=== PATIENT | male | born 1985 | race African-American/Black ===

== ENCOUNTER 2018-07-02 18:59 | Inpatient (IN) | payer SELFPAY ==
[~2018-07-02] VITALS: Ht 175.3 cm; Wt 94.8 kg
[~2018-07-02 18:59] MED LIST: AMIT25TA9 PO; CARV25TA2 PO; CLON0.1T PO; DIPH25TA62 PO; ESCI10TA PO; GABA-534 PO; HYDR-4077 PO; HYDR-548 PO; LORA2TAB PO; MAGN400T6 PO; TAMS0.4C34 PO; TRAM50TA2 PO; VITA1TAB20 PO; WARF3TAB59 PO
--- NOTE | 2018-07-02 19:03 | NUR ---
PT TO ER BED 11. BIBPA FROM [facility] C/O SCRAOTAL PAIN AND GENERALIZED EDEMA. PT PLACED IN GOWN AND ON RING SORTER. VSS/RESP EVEN UNLABORED/NAD NOTED/SKIN WARM AND DRY/AFEBRILE/DENIES N-V-D/AOX4. AWAITNG MD RODRIGUEZ.
--- NOTE | 2018-07-02 19:34 | NUR ---
ULTRASOUND AT BEDSIDE.
--- NOTE | 2018-07-02 20:20 | NUR ---
20G IV TO L EJ X 1 ATTEMPT USING ASEPTIC TECH, BLOOD CULT X 2 AND BLOOD HANDED OVER TO THE LAB AT BEDSIDE. IV FLUSHES EASILY WITH NS, NO S/S INFILTRATION NOTED AT THIS TIME.
[2018-07-02] MEDS ORDERED: HYDROMORPHONE INJ 2 MG/ML DISP.SYRIN ONE (20:23)
[2018-07-02] MEDS ORDERED: diphenhydrAMINE HCL 50 MG/ML VIAL ONE (20:23)
[2018-07-02] MEDS ORDERED: HYDROMORPHONE 1 MG/1 ML DISP.SYRIN IV ONE (20:30)
[2018-07-02] MEDS ORDERED: diphenhydrAMINE HCL 50 MG/ML VIAL IV ONE (20:30)
[2018-07-02 20:51] LABS: TROPONIN I < 0.017 ng/mL (0.00-0.056)
[2018-07-02 20:53] LABS: CALCIUM, SERUM 8.7 mg/dL (8.5-10.1); CARBON DIOXIDE 28 mmol/L (21-32); CHLORIDE 91 mmol/L (98-107); CREATININE 3.9 mg/dL (0.6-1.3); GLUCOSE 89 mg/dL (74-106); POTASSIUM 4.7 mmol/L (3.5-5.1); SODIUM SERUM 121 mmol/L (136-145); UREA NITROGEN, BLOOD 41 mg/dL (7-18)
[2018-07-02 21:05] LABS: ALANINE AMINOTRANSFERASE 19 U/L (12-78); ALBUMIN 1.9 g/dL (3.4-5.0); ALKALINE PHOSPHATASE 320 U/L (46-116); ASPARTATE AMINOTRANSFERASE 37 U/L (15-37); B-TYPE NATRIURETIC PEPTIDE 22648 PG/ML (0-125); BILIRUBIN,TOTAL 0.3 mg/dL (0.2-1.0)
[2018-07-02 21:13] LABS: HEMATOCRIT 23 % (39-51); HEMOGLOBIN 7.2 g/dL (13.5-17.5); MEAN CORPUSCULAR HEMOGLOBIN 25 PG (26.0-33.0); MEAN CORPUSCULAR HGB CONC 31 g/dl (31.0-36.0); MEAN CORPUSCULAR VOLUME 79 fL (80-96); PLATELET COUNT (AUTO) 325 /CMM (150-450); RED BLOOD CELL COUNT(AUTO) 2.89 MIL/uL (4.5-6.0); WHITE BLOOD COUNT (AUTO) 5.2 K/uL (4.3-11.0)
--- NOTE | 2018-07-02 21:35 | NUR ---
MADE AWARE PT IS DIALYSIS PT, UNABLE TO OBTAIN URINE AT THIS TIME. NO NEW ORDERS RECEIVED.
[2018-07-02 21:36] LABS: BAND % (MANUAL) 2 % (0.0-5.0); LYMPHOCYTES % (MANUAL) 7 % (16-48); NEUTROPHILS % (MANUAL) 86 (42-76)
[2018-07-02 21:37] LABS: EOSINOPHILS % (MANUAL) 1 % (0-4); MONOCYTES % (MANUAL) 4 % (0-11.0)
--- NOTE | 2018-07-02 22:30 | NUR ---
REPORT GIVEN TO SANDY ESTRADA FOR LISSETTE.
--- NOTE | 2018-07-02 22:40 | NUR ---
TELE/RN NOTES RECEIVED PT. FROM ER VIA YAYA. PT. IS AWAKE, ALERT AND ORIENTED X3. BREATHING EVEN AND UNLABORED ON 2LPM O2 VIA NC. NO SOB, RESPIRATORY DISTRESS OR COMPLAINTS OF PAIN NOTED AT THIS TIME. ORIENTED PT. TO ROOM. PLACED EXTERNAL MANUFACTURING ADVISOR ON PT. CURRENT RHYTHM = SINUS RHYTHM HR 82. PT. WITH #20 GAUGE LEFT IJ SALINE LOCK PRESENT, PATENT AND INTACT. PT. WITH RIGHT CHEST WALL DIALYSIS ACCESS NOTED. PT. REFUSING AUSCULTATION OF LUNGS, HEART AND ABDOMEN STATING "THEY DID IT DOWNSTAIRS". EDUCATED PT. ON IMPORTANCE OF ASSESSING PT, PT. CONTINUES TO REFUSE. PT. REFUSING TO BE BATHED, STATED "I DON'T WANT ANY WATER TO TOUCH ME, YOU CAN CHANGE MY GOWN". BED LOCKED AND IN LOWEST POSITION, SIDE RAILS UP X3, BED ALARM ON, CALL LIGHT WITHIN REACH, WILL CONTINUE TO MONITOR.
--- NOTE | 2018-07-02 22:53 | NUR ---
PT TRANSPORTED VIA STRETCHER TO TELE RM 312.2 ON VISION TEACHER WITH RN PER ACLS PROTOCOL. VSS.
[2018-07-02 23:00] VITALS: BP 159/99
[2018-07-02] MEDS ORDERED: TRAMADOL HCL 50 MG TABLET PO PRN (23:00)
[2018-07-02] MEDS ORDERED: diphenhydrAMINE HCL ELIX 25 MG/10 ML UDC PO PRN (23:00)
[2018-07-02] MEDS ORDERED: ONDANSETRON HCL/PF 4 MG/2 ML VIAL IVP PRN (23:30)
[2018-07-02] MEDS ORDERED: HYDROCODONE/APAP 5/325MG 1 EACH TABLET PO PRN (23:30)
[2018-07-02] MEDS ORDERED: ACETAMINOPHEN 325 MG TABLET PO PRN (23:30)
[2018-07-02] MEDS ORDERED: Z GUARD REMEDY 2 OZ OINT TP PRN (23:30)
[2018-07-02] MEDS ORDERED: ZOLPIDEM TARTRATE 5 MG TABLET PO PRN (23:30)
[2018-07-03] MEDS ORDERED: HYDROMORPHONE 1 MG/1 ML DISP.SYRIN IV PRN (00:30)
[2018-07-03] MEDS ORDERED: FUROSEMIDE 40 MG/4 ML VIAL IV ONE (00:30)
[2018-07-03] MEDS: CLONIDINE HCL 0.1 MG TABLET PO SCH ×6 (02:10→21:16)
[2018-07-03] MEDS: HYDROMORPHONE INJ 2 MG/ML DISP.SYRIN IV PRN ×5 (04:06→23:08)
[2018-07-03] MEDS: hydrALAZINE HCL 50 MG TABLET PO SCH ×3 (05:27→21:16)
--- NOTE | 2018-07-03 05:50 | NUR ---
TELE/RN NOTES PT. 0500 CATAPRES MEDICATION HELD DUE TO POSSIBLE DIALYSIS TODAY. BP 136/77 HR 78. WILL CONTINUE TO MONITOR.
--- NOTE | 2018-07-03 06:21 | NUR ---
TELE/RN NOTES PT. IS LYING IN BED RESTING. BREATHING EVEN AND UNLABORED ON 2LPM O2 VIA NC. NO SOB, RESPIRATORY DISTRESS OR COMPLAINTS OF PAIN NOTED AT THIS TIME. PT. WITH EXTERNAL ROLLER SETTER PRESENT AND INTACT, CURRENT RHYTHM = SINUS RHYTHM HR 78. PT. WITH #20 GAUGE LEFT IJ SALINE LOCK PRESENT, PATENT AND INTACT. PT. WITH RIGHT CHEST WALL DIALYSIS ACCESS NOTED. ALL PT. NEEDS MET. BED LOCKED AND IN LOWEST POSITION, SIDE RAILS UP X3, BED ALARM ON, CALL LIGHT WITHIN REACH, WILL ENDORSE TO DAYSHIFT NURSE FOR CONTINUITY OF CARE.
--- NOTE | 2018-07-03 07:30 | NUR ---
FANCY NEEDLEWORKER NOTES PATIENT RECEIVED RESTING INSIDE ROOM, AWAKE, ALERT AND ORIENTED, VERBALLY RESPONSIVE AND RESPONDS TO VERBAL AND TACTILE STIMULI. BREATHING EVEN AND UNLABORED. NO SOB OR ACUTE DISTRESS NOTED AT THIS TIME. PATIENT CALM AND RELAXED. NO CHANGES IN LOC NOTED. RIGHT CHEST WALL DIALYSIS SITE, NO BLEEDING OR DRAINAGE NOTED AT THIS TIME, WILL CONTINUE TO MONITOR. BED LOCKED AND IN LOW POSITION. BILATERAL UPPER SIDE RAILS UP AND LOCKED. CALL LIGHT WITHIN EASY REACH
[2018-07-03 07:31] LABS: HEMATOCRIT 22 % (39-51); MEAN CORPUSCULAR HEMOGLOBIN 25 PG (26.0-33.0); MEAN CORPUSCULAR HGB CONC 31 g/dl (31.0-36.0); MEAN CORPUSCULAR VOLUME 80 fL (80-96); PLATELET COUNT (AUTO) 282 /CMM (150-450); RDW COEFFICIENT OF VARIATION 22.5 (11.5-15.0); RED BLOOD CELL COUNT(AUTO) 2.76 MIL/uL (4.5-6.0); WHITE BLOOD COUNT (AUTO) 4.7 K/uL (4.3-11.0)
[2018-07-03 07:43] LABS: CALCIUM, SERUM 7.8 mg/dL (8.5-10.1); CREATININE 3.9 mg/dL (0.6-1.3); MAGNESIUM 1.7 mg/dL (1.8-2.4); PHOSPHORUS 5.2 mg/dL (2.5-4.9); POTASSIUM 4.6 mmol/L (3.5-5.1)
[2018-07-03 08:00] VITALS: BP 136/90
[2018-07-03 08:00] LABS: INR 2.16 (0.87-1.13)
[2018-07-03 08:09] LABS: HEMOGLOBIN 6.8 g/dL (13.5-17.5)
[2018-07-03] MEDS: VITAMIN B COMP W-C 1 TAB TABLET PO SCH (08:54)
[2018-07-03] MEDS: CARVEDILOL 12.5 MG TABLET PO SCH ×2 (08:55→21:17)
[2018-07-03] MEDS: MAGNESIUM OXIDE 400 MG TABLET PO SCH (08:55)
[2018-07-03] MEDS: ESCITALOPRAM OXALATE (10 MG) 10 MG TABLET PO SCH (08:55)
[2018-07-03] MEDS: GABAPENTIN 300 MG CAPSULE PO SCH ×2 (08:55→17:37)
--- NOTE | 2018-07-03 08:58 | NUR ---
QUALITY ASSURANCE ASSESSOR NOTES 0900 CLONIDINE AND CARVEDILOL MEDICATIONS HELD DUE TO POSSIBLE DIALYSIS TODAY. BP 136/92 HR 80. WILL CONTINUE TO MONITOR.
[2018-07-03 10:01] LABS: LYMPHOCYTES % (MANUAL) 11 % (16-48); MONOCYTES % (MANUAL) 11 % (0-11.0); NEUTROPHILS % (MANUAL) 78 (42-76)
[2018-07-03] MEDS ORDERED: EPOETIN ALFA (10,000 UNIT) 10,000 UNIT/ML VIAL IV ONE (11:00)
--- NOTE | 2018-07-03 11:41 | NUR ---
I spoke to Vidal Hermosillo and let him know that the result was positive
--- NOTE | 2018-07-03 11:42 | NUR ---
MS RN NOTES RECEIVED CALL FROM DR. ADAM REGARDING DOPPLER VENOUS RESULT WITH (+) DVT ON BLE. PER DR. ADAM, PATIENT'S DVT IS IMPROVING IN COMPARISION FROM PREVIOUS DOPPLER RESULT FROM PREVIOUS ADMISSION LAST MONTH. DR. LAWRENCE PRESENT AT UNIT AND MADE AWARE.
--- NOTE | 2018-07-03 11:47 | NUR ---
I spoke to Vidal Hermosillo and let him know that the result was positive.
--- NOTE | 2018-07-03 11:50 | NUR ---
MS RN NOTES PATIENT SEEN AND EXAMINED BY DR. TIMMONS, MADE AWARE OF HGB LEVEL OF 6.8, VERIFIED IF PATIENT WILL BE GIVEN BLOOD TRANSFUSION TODAY, DR. TIMMONS WITH NEW ORDER FOR EPOETIN CE 10,000 UNITS TO BE GIVEN WITH HD. ORDER NOTED AND CARRIED OUT.
--- NOTE | 2018-07-03 14:00 | NUR ---
MS RN NOTES PATIENT S/P HD WITH 3300 CC OUTPUT. NO CHANGES IN LOC NOTED AT THIS TIME. WILL CONTINUE TO MONITOR
--- NOTE | 2018-07-03 14:30 | NUR ---
MS RN NOTES PATIENT WITH C/O BLE AND FEET PAIN WITH LEVEL OF 9/10. REQUESTED FOR DILAUDID PRN. PATIENT WITH IV SITE ON LEFT IJ. DILAUDID OBTAINED FROM [facility]. PRIOR TO ADMINISTRATION OF DILAUDID, PATIENT ACCIDENTALLY REMOVED HIS IV ON LEFT IJ. MINIMAL BLEEDING NOTED, PRESSURE DRESSING APPLIED TO SITE. INITIATED IV INSERTION BUT UNSUCCESSFUL. DILAUDID WASTED, WITNESSED BY DAVID DELGADO. OFFERED PO PAIN MEDICATION BUT PATIENT REFUSED AND INSISTED TO HAVE AN RN INSERT IV. CALLED ER FOR ER NURSE TO INSERT IV
[2018-07-03 16:00] VITALS: BP 161/90
--- NOTE | 2018-07-03 16:32 | NUR ---
MS RN NOTES ER NURSE PRESENT AT UNIT, ATTEMPTED TO INSERT IV BUT UNSUCCESSFUL. OFFERED PATIENT ORAL PAIN MEDICATIONS BUT PATIENT CONTINUE TO REFUSE AND INSIST THAT HE WANTS DILAUDID. MD MADE AWARE. WILL CONTINUE TO MONITOR
--- NOTE | 2018-07-03 17:08 | NUR ---
MS RN NOTES PATIENT SEEN AND EXAMINED BY JANA LOPEZ DECK CADET. PATIENT REQUESTED FOR DILAUDID TO BE INCREASED TO 2MG AND JANA LOPEZ GAVE OK TO INCREASE DILAUDID TO 2MG IV PRN, TO KEEP IT Q4 PREVIOUS ORDER. NOTED AND CARRIED OUT. WILL CONTINUE TO MONITOR
--- NOTE | 2018-07-03 17:09 | NUR ---
MS RN NOTES ER NURSE PRESENT AT UNIT, IV SITE OBTAINED ON LEFT HAND g22, (+) BLOOD RETURN, DRESSING IN PLACE. WILL CONTINUE TO MONITOR
[2018-07-03] MEDS: WARFARIN SODIUM 1 MG TABLET PO SCH (17:40)
--- NOTE | 2018-07-03 18:44 | NUR ---
MS RN NOTES PATIENT RESTING INSIDE ROOM. AWAKE, ALERT AND ORIENTED X 4, VERBALLY RESPONSIVE AND RESPONDS TO VERBAL AND TACTILE STIMULI. BREATHING EVEN AND UNLABORED. NO SOB OR ACUTE DISTRESS NOTED AT THIS TIME. PATIENT CALM AND RELAXED. NO CHANGES IN LOC NOTED AT THIS TIME. IV SITE INTACT AND PATENT. WILL ENDORSE TO INCOMING SHIFT FOR LISSETTE. BED LOCKED AND IN LOW POSITION. BILATERAL UPPER SIDE RAILS UP AND LOCKED. CALL LIGHT WITHIN EASY REACH
[2018-07-03] MEDS: diphenhydrAMINE HCL 50 MG/ML VIAL IV PRN (19:14)
[2018-07-03 20:00] VITALS: BP 156/110
--- NOTE | 2018-07-03 20:20 | NUR ---
Lying in bed HOB up A/0 x4 speech is slow and slurred. 02 @ 4L n/c H/D cath to right Chest wall intact. IV s/l to right hand intact. On Med Sug status . Limit 1 litre fluid daily 400 cc on second shift supervisor. plus 2 Edema to scrotal area. Fall Risk. Siderails up call light within reach bed wheels locked. Denies of pain c/o Anxiety given 2mg ativan po.
[2018-07-03] MEDS: AMITRIPTYLINE HCL 25 MG TABLET PO SCH (21:17)
[2018-07-03] MEDS: TAMSULOSIN 0.4 MG CAP.SR.24H PO SCH (21:17)
[2018-07-03] MEDS: LORAZEPAM 1 MG TABLET PO PRN (21:17)
[2018-07-04] MEDS: CLONIDINE HCL 0.1 MG TABLET PO SCH ×6 (01:00→20:27)
[2018-07-04 04:00] VITALS: BP 145/86
[2018-07-04] MEDS: hydrALAZINE HCL 50 MG TABLET PO SCH ×3 (05:07→20:27)
[2018-07-04] MEDS: HYDROMORPHONE INJ 2 MG/ML DISP.SYRIN IV PRN ×3 (06:17→21:22)
--- NOTE | 2018-07-04 06:49 | NUR ---
End of Shift: lYING IN BED AWAKE AM LABS BEING DRAWN DENIES OF ANY DISTRESS. SIDE RAILS UP CALL RESTING COMFORABY.LT HAND S/L INTACT..
[2018-07-04 08:00] VITALS: BP 163/98
[2018-07-04] MEDS: ESCITALOPRAM OXALATE (10 MG) 10 MG TABLET PO SCH (08:28)
[2018-07-04] MEDS: MAGNESIUM OXIDE 400 MG TABLET PO SCH (08:28)
[2018-07-04] MEDS: VITAMIN B COMP W-C 1 TAB TABLET PO SCH (08:28)
[2018-07-04] MEDS: CARVEDILOL 12.5 MG TABLET PO SCH ×2 (08:28→20:27)
[2018-07-04] MEDS: GABAPENTIN 300 MG CAPSULE PO SCH ×2 (08:28→16:27)
[2018-07-04] MEDS: LORAZEPAM 1 MG TABLET PO PRN (08:29)
--- NOTE | 2018-07-04 08:30 | NUR ---
MS RN NOTES PATIENT IN SLIDING HIMSELF AT THE EDGE OF THE BED, APPEARS RESTLESS AND ANXIOUS, MANIFESTED BY TRYING TO GET UP FROM BED UNASSISTED, DID NOT USE CALL LIGHT FOR ASSISTANCE, REFUSING TO BE REPOSITIONED, APPEARS WEAK. OFFERED BREAKFAST AND ASSIST WITH 2 PERSON TO REPOSITION IN BED, DENIES PAIN. ON OXYGEN AT 4L VIA NC. PO PRN ATIVAN GIVEN FOR ANXIETY, PLACE BED IN LOW POSITION. CALL LIGHT WITHIN REACH. WILL CONT TO MONITOR.
[2018-07-04 12:47] VITALS: BP 147/99
[2018-07-04 16:00] VITALS: BP 157/98
[2018-07-04 17:09] LABS: CALCIUM, SERUM 7.5 mg/dL (8.5-10.1); CREATININE 3.1 mg/dL (0.6-1.3); POTASSIUM 4.7 mmol/L (3.5-5.1)
[2018-07-04 17:13] LABS: MAGNESIUM 1.6 mg/dL (1.8-2.4); PHOSPHORUS 4.5 mg/dL (2.5-4.9)
[2018-07-04 17:17] LABS: MEAN CORPUSCULAR HEMOGLOBIN 24 PG (26.0-33.0); MEAN CORPUSCULAR HGB CONC 30 g/dl (31.0-36.0); MEAN CORPUSCULAR VOLUME 80 fL (80-96); PLATELET COUNT (AUTO) 236 /CMM (150-450); RDW COEFFICIENT OF VARIATION 22.9 (11.5-15.0); RED BLOOD CELL COUNT(AUTO) 2.56 MIL/uL (4.5-6.0); WHITE BLOOD COUNT (AUTO) 3.9 K/uL (4.3-11.0)
[2018-07-04 17:23] LABS: HEMATOCRIT 20 % (39-51); HEMOGLOBIN 6.2 g/dL (13.5-17.5)
[2018-07-04 17:26] LABS: INR 2.07 (0.87-1.13)
[2018-07-04 17:42] LABS: EOSINOPHILS % (MANUAL) 1 % (0-4); LYMPHOCYTES % (MANUAL) 13 % (16-48); MONOCYTES % (MANUAL) 10 % (0-11.0); NEUTROPHILS % (MANUAL) 76 (42-76)
[2018-07-04 18:10] LABS: THYROID STIMULATING HORMONE 3.814 uIU/mL (0.358-3.74); URIC ACID 5.3 mg/dL (2.6-7.2)
[2018-07-04] MEDS: diphenhydrAMINE HCL 50 MG/ML VIAL IV PRN (18:19)
[2018-07-04] MEDS: WARFARIN SODIUM 1 MG TABLET PO SCH (18:37)
--- NOTE | 2018-07-04 18:59 | NUR ---
MS RN closing notes Patient in bed, dinner served with good appetite, on fluid restriction 1L/day. Episode of anxiety today, medicated with PO PRN ativan, effective. AM labs was drawn late, informed Dr. Chris gilman with result. Magnesium 1.6 with no new orders, 1 unit PRBC to infuse for hemoglobin 6.2, no active bleeding. Post dialysis treatment today with fluid output 3300ml. Call light within reach. Will endorse to oncoming RN.
--- NOTE | 2018-07-04 19:15 | NUR ---
MS DELGADO OPENING NOTES: RECEIVED PT IN BED AND IS A/OX3. PT ON 2LPM VIA NC AND IS TOLERATING WELL. PT AWAKE AT THIS TIME AND IS SITTING UP. PT HAS IV ON L HAND #22G AND IS PATENT AND INTACT. CURRENTLY H/L. BED ALARM ACTIVATED. CALL LIGHT WITHIN PT'S REACH. NEED BLOOD CONSENT FROM PT. BED KEPT IN LOW, LOCKED POSITION, AND SIDE RAILS X 2UP. WILL CONTINUE TO MONITOR PT. Addendum: 07/04/18 at 2103 by CARLY FELICIANO RN PT ALSO HAS R CHEST WALL HD CATH AND IS INTACT.
[2018-07-04 20:00] VITALS: BP 165/114
--- NOTE | 2018-07-04 20:50 | NUR ---
MS RN NOTES: CALLED LAB. BLOOD NOT READY.
--- NOTE | 2018-07-04 21:01 | NUR ---
MS RN NOTES: SPOKE WITH JOCELYN FROM LAB AND NOTIFIED ME THAT BLOOD HAS TO BE OBTAINED FROM [facility]. SHE WILL ENDORSE TO SOMEONE IN LAB AND WILL CALL ME ONCE OBTAINED AND READY.
[2018-07-04 21:15] VITALS: BP 177/115
[2018-07-04] MEDS: AMITRIPTYLINE HCL 25 MG TABLET PO SCH (21:22)
[2018-07-04] MEDS: TAMSULOSIN 0.4 MG CAP.SR.24H PO SCH (21:22)
--- NOTE | 2018-07-04 21:22 | NUR ---
MS RN NOTES: PT COMPLAINING OF 9/10 FEET AND LEG PAIN. PT WAS ADMINISTERED DILAUDID 2MG IV. WILL CONTINUE TO MONITOR PT.
[2018-07-05] VITALS (9 sets, daily range): BP systolic 138–186; BP diastolic 85–116
[2018-07-05] MEDS: CLONIDINE HCL 0.1 MG TABLET PO SCH ×6 (00:24→20:12)
[2018-07-05] MEDS: HYDROMORPHONE INJ 2 MG/ML DISP.SYRIN IV PRN ×5 (01:27→20:46)
--- NOTE | 2018-07-05 02:03 | NUR ---
MS RN NOTES: BLOOD TRANSFUSION STARTED. CO SIGNED WITH RN, KAREN NORMAN.
[2018-07-05] MEDS: hydrALAZINE HCL 50 MG TABLET PO SCH ×3 (04:13→20:12)
--- NOTE | 2018-07-05 04:52 | NUR ---
MS RN NOTES: BLOOD TRANSFUSION COMPLETED. PT TOLERATED WELL. NO REACTIONS. WILL CONTINUE TO MONITOR.
[2018-07-05] MEDS: diphenhydrAMINE HCL 50 MG/ML VIAL IV PRN ×3 (05:01→20:45)
--- NOTE | 2018-07-05 05:02 | NUR ---
MS RN NOTES: PT COMPLAINING OF ITCHING. PT WAS ADMINISTERED BENADRYL IV. WILL CONTINUE TO MONITOR.
--- NOTE | 2018-07-05 05:38 | NUR ---
MS RN NOTES: PT COMPLAINING OF 10/10 GENERALIZED PAIN, FEET, LEGS, AND BACK. PT WAS ADMINISTERED DILAUDID. WILL CONTINUE TO MONITOR PT.
--- NOTE | 2018-07-05 06:27 | NUR ---
MS RN NOTES: PT REFUSING TO BE CLEANED BY GLOBE CLEANER. PT DOES NOT WANT TO BE BOTHERED.
--- NOTE | 2018-07-05 07:27 | NUR ---
MS RN OPENING NOTE RECEIVED BEDSIDE SBAR REPORT ON THE PATIENT. PATIENT IS A/O X3, AWAKE AND RESPONSIVE IN BED. BED IS LOCKED IN LOWEST POSITION, SIDE RAILS UP X3, BED ALARM IS ON. CALL LIGHT WITHIN REACH, EDUCATED THE PATIENT TO USE THE CALL LIGHT TO CALL FOR ASSISTANCE. PATIENT VERBALIZED UNDERSTANDING. ASSISTED THE PATIENT TO REPOSITION FOR COMFORT. DENIES PAIN/DISCOMFORT AT THIS TIME. SPO2 97% ON 3LPM VIA NASAL CANNULA. ALL NEEDS ARE MET. WILL CONTINUE TO ASSES/MONITOR THROUGHOUT THE SHIFT.
--- NOTE | 2018-07-05 07:33 | NUR ---
MS RN CLOSING NOTES: ALL NEEDS WERE ATTENDED AND ANTICIPATED FOR. PT ON 4LPM VIA NC. PT SITTING UPRIGHT AND IS A/OX4. PT HAS IV ON L HAND AND IS PATENT AND INTACT. BED ALARM ACTIVATED. CALL LIGHT WITHIN PT'S REACH. BED KEPT IN LOW, LOCKED POSITION, AND SIDE RAILS X 2UP. ENDORSED TO AM NURSE FOR LISSETTE.
[2018-07-05 08:05] LABS: HEMATOCRIT 26 % (39-51); HEMOGLOBIN 8.1 g/dL (13.5-17.5); MEAN CORPUSCULAR HEMOGLOBIN 26 PG (26.0-33.0); MEAN CORPUSCULAR HGB CONC 31 g/dl (31.0-36.0); MEAN CORPUSCULAR VOLUME 82 fL (80-96); PLATELET COUNT (AUTO) 251 /CMM (150-450); RDW COEFFICIENT OF VARIATION 21.6 (11.5-15.0); RED BLOOD CELL COUNT(AUTO) 3.18 MIL/uL (4.5-6.0); WHITE BLOOD COUNT (AUTO) 5.6 K/uL (4.3-11.0)
[2018-07-05 08:31] LABS: CREATININE 2.8 mg/dL (0.6-1.3); MAGNESIUM 1.5 mg/dL (1.8-2.4); PHOSPHORUS 3.8 mg/dL (2.5-4.9); POTASSIUM 5.1 mmol/L (3.5-5.1)
[2018-07-05 09:53] LABS: LYMPHOCYTES % (MANUAL) 15 % (16-48); MONOCYTES % (MANUAL) 4 % (0-11.0); NEUTROPHILS % (MANUAL) 81 (42-76)
[2018-07-05] MEDS: MAGNESIUM OXIDE 400 MG TABLET PO SCH (10:42)
[2018-07-05] MEDS: CARVEDILOL 12.5 MG TABLET PO SCH ×2 (10:43→20:12)
[2018-07-05] MEDS: ESCITALOPRAM OXALATE (10 MG) 10 MG TABLET PO SCH (10:43)
[2018-07-05] MEDS: VITAMIN B COMP W-C 1 TAB TABLET PO SCH (10:46)
[2018-07-05] MEDS: GABAPENTIN 300 MG CAPSULE PO SCH ×2 (10:46→16:19)
[2018-07-05] MEDS: Magnesium 1GM/D5W 100ML PREMIX 100 ML IV SCH ×2 (10:48→11:00)
--- NOTE | 2018-07-05 12:16 | NUR ---
PER DR SOFIE BOWEN HOLD MAGNESIUM. PATIENT IS GOING TO BE DIALYZED TODAY.
--- NOTE | 2018-07-05 13:14 | NUR ---
BLOOD PRESSURE MEDS DUE HELD. HEMODIALYSIS PENDING.
--- NOTE | 2018-07-05 15:21 | NUR ---
PATIENT WENT TO CT VIA BED Addendum: 07/05/18 at 1522 by MOON PENNY RN CHARTING ON WRONG PATIENT
--- NOTE | 2018-07-05 15:22 | NUR ---
HD AT THE BEDSIDE
[2018-07-05] MEDS ORDERED: Magnesium 1GM/D5W 100ML PREMIX 100 ML IV SCH (15:30)
[2018-07-05] MEDS: WARFARIN SODIUM 1 MG TABLET PO SCH (16:23)
[2018-07-05] MEDS: CLOTRIMAZOLE/BETAMETASONE DIPROPIONATE 15 GM TUBE TP SCH (17:00)
--- NOTE | 2018-07-05 17:55 | NUR ---
AFTER CLONIDINE ADMINISTRATION BLOOD PRESSURE TRENDING DOWN
--- NOTE | 2018-07-05 18:34 | NUR ---
MS RN CLOSING NOTE PATIENT IS A/O X3, AWAKE AND RESPONSIVE IN BED. BED IS LOCKED IN LOWEST POSITION, SIDE RAILS UP X3, BED ALARM IS ON. CALL LIGHT WITHIN REACH, EDUCATED THE PATIENT TO USE THE CALL LIGHT TO CALL FOR ASSISTANCE. PATIENT VERBALIZED UNDERSTANDING. ASSISTED THE PATIENT TO REPOSITION FOR COMFORT. SPO2 97% ON 3LPM VIA NASAL CANNULA. ALL NEEDS ARE MET. PATIENT REFUSED WOUND CARE AND BED BATH. RISKS AND BENEFITS DISCUSSED. WILL ENDORSE TO THE CENTRAL STATION OPERATOR NURSE FOR LISSETTE.
[2018-07-05 19:12] LABS: INR 1.94 (0.87-1.13)
--- NOTE | 2018-07-05 19:25 | NUR ---
RN OPENING NOTES PT AWAKE AND ALERT, RESTING IN BED. NO COMPLAINTS OF SOB, DISTRESS OR PAIN AT THIS TIME. PT ON 3L OF 02 VIA NASAL CANNULA. PT HAS A LEFT HAND #22 IV INTACT AND PATENT PT ALSO HAS A RIGHT CHEST WALL HD CATH. SAFETY PRECAUTIONS IN PLACE, BED IN LOWEST LOCKED POSITION, X3 SIDE RAILS UP, AND CALL LIGHT WITHIN REACH. WILL CONTINUE TO MONITOR.
[2018-07-05] MEDS: TAMSULOSIN 0.4 MG CAP.SR.24H PO SCH (21:54)
[2018-07-05] MEDS: AMITRIPTYLINE HCL 25 MG TABLET PO SCH (21:54)
[2018-07-06] MEDS: CLONIDINE HCL 0.1 MG TABLET PO SCH ×5 (01:53→16:28)
[2018-07-06] MEDS: hydrALAZINE HCL 50 MG TABLET PO SCH ×2 (05:52→12:28)
[2018-07-06] MEDS: diphenhydrAMINE HCL 50 MG/ML VIAL IV PRN ×2 (06:32→15:00)
[2018-07-06] MEDS: HYDROMORPHONE INJ 2 MG/ML DISP.SYRIN IV PRN ×3 (06:32→16:33)
--- NOTE | 2018-07-06 06:41 | NUR ---
WOUND CARE CONSULT WOUND CARE RECEIVED CONSULT FOR SCRATCHES AND SCABS ABDOMEN ARMS AND LEGS. WOUND CARE WILL DEFER CONSULT AND TREATMENT PLANS TO SURGICAL TEAM AT THIS TIME. PATIENT WITH VIKRAM AT 16, ALL PRESSURE ULCER PREVENTION MEASURES NOTED TO BE IN PLACE. WILL SEE PRN.
--- NOTE | 2018-07-06 06:56 | NUR ---
RN OPENING NOTES PT AWAKE AND ALERT, RESTING IN BED. NO COMPLAINTS OF SOB OR DISTRESS. PT ON 3L OF 02 VIA NASAL CANNULA. PT HAS A RIGHT HAND #22 IV INTACT AND PATENT PT ALSO HAS A RIGHT CHEST WALL HD CATH. SAFETY PRECAUTIONS IN PLACE, BED IN LOWEST LOCKED POSITION, X3 SIDE RAILS UP, AND CALL LIGHT WITHIN REACH. ALL PATIENT NEEDS MET. WILL ENDORSE TO DAY SHIFT NURSE FOR CONTINUITY OF CARE.
[2018-07-06 07:11] LABS: HEMATOCRIT 24 % (39-51); HEMOGLOBIN 7.4 g/dL (13.5-17.5); MEAN CORPUSCULAR HEMOGLOBIN 26 PG (26.0-33.0); MEAN CORPUSCULAR HGB CONC 31 g/dl (31.0-36.0); MEAN CORPUSCULAR VOLUME 82 fL (80-96); PLATELET COUNT (AUTO) 230 /CMM (150-450); RDW COEFFICIENT OF VARIATION 21.1 (11.5-15.0); RED BLOOD CELL COUNT(AUTO) 2.91 MIL/uL (4.5-6.0); WHITE BLOOD COUNT (AUTO) 5.6 K/uL (4.3-11.0)
[2018-07-06 07:25] LABS: CALCIUM, SERUM 8.1 mg/dL (8.5-10.1); CREATININE 2.8 mg/dL (0.6-1.3); PHOSPHORUS 3.7 mg/dL (2.5-4.9); POTASSIUM 4.7 mmol/L (3.5-5.1)
--- NOTE | 2018-07-06 07:30 | NUR ---
MS RN NOTES PATIENT RECEIVED RESTING INSIDE ROOM. AWAKE, ALERT AND ORIENTED, VERBALLY RESPONSIVE AND RESPONDS TO VERBAL AND TACTILE STIMULI. BREATHING EVEN AND UNLABORED. NO SOB OR ACUTE DISTRESS NOTED AT THIS TIME. PATIENT CALM AND RELAXED. NO CHANGES IN LOC NOTED AT THIS TIME. IV INTACT AND PATENT, NO BLEEDING NOTED AT THIS TIME. WILL CONTINUE TO MONITOR. BED LOCKED AND IN LOW POSITION. BILATERAL UPPER SIDE RAILS UP AND LOCKED. CALL LIGHT WITHIN EASY REACH
[2018-07-06 08:00] VITALS: BP 144/98
[2018-07-06] MEDS: CLOTRIMAZOLE/BETAMETASONE DIPROPIONATE 15 GM TUBE TP SCH ×2 (09:00→16:32)
[2018-07-06] MEDS: GABAPENTIN 300 MG CAPSULE PO SCH ×2 (09:04→16:28)
[2018-07-06] MEDS: VITAMIN B COMP W-C 1 TAB TABLET PO SCH (09:05)
[2018-07-06] MEDS: ESCITALOPRAM OXALATE (10 MG) 10 MG TABLET PO SCH (09:05)
[2018-07-06] MEDS: MAGNESIUM OXIDE 400 MG TABLET PO SCH (09:05)
[2018-07-06] MEDS: CARVEDILOL 12.5 MG TABLET PO SCH (09:05)
[2018-07-06 10:08] LABS: LYMPHOCYTES % (MANUAL) 18 % (16-48); MONOCYTES % (MANUAL) 11 % (0-11.0); NEUTROPHILS % (MANUAL) 71 (42-76)
[2018-07-06] MEDS ORDERED: FURO40TA5 PO (11:43)
[2018-07-06 13:30] LABS: INR 1.97 (0.87-1.13)
[2018-07-06 16:00] VITALS: BP 147/90
[2018-07-06 16:28] VITALS: BP 147/90
[2018-07-06] MEDS: WARFARIN SODIUM 1 MG TABLET PO SCH (16:30)
[2018-07-06] MEDS ORDERED: FUROSEMIDE 40 MG TABLET PO SCH (17:00)
--- NOTE | 2018-07-06 17:12 | NUR ---
MS RN NOTES PATIENT WITH ORDER TO DISCHARGE TO [facility]. ORDERED NOTED AND CARRIED OUT. PLACED CALL TO CASE MANAGEMENT AND RECEIVED PICK-UP TIME FOR 1730. PLACED CALL TO [facility] AND GAVE REPORT TO SEEMA DELGADO. WILL CONTINUE TO MONITOR.
--- NOTE | 2018-07-06 18:00 | NUR ---
MS RN NOTES PATIENT FOR DISCHARGE TODAY. 3 COAL PIPELINE OPERATOR FROM [facility] TRANSPORTATION PRESENT AT UNIT. PATIENT LEFT UNIT AT 1800 IN STABLE CONDITION. BREATHING EVEN AND UNLABORED. NO SOB OR ACUTE DISTRESS NOTED. DENIES ANY PAIN OR DISCOMFORT. NO CHANGES IN LOC NOTED. ALL BELONGINGS COMPLETE ON DISCHARGE, NO REPORT OF MISSING INVENTORY. PATIENT CALM AND RELAXED. IV REMOVED WITH MINIMAL BLEEDING NOTED, PRESSURE DRESSING APPLIED TO SITE. DISCHARGE INSTRUCTIONS AND EDUCATION GIVEN TO PATIENT AND VERBALIZED UNDERSTANDING. MD AWARE OF DISCHARGE
== END 2018-07-06 18:00 | DRG 291 ==
LOC: ER 19:01 → TELE 22:32 → MED 07-03 08:40
PROVIDERS: ADMIT Nurse Practitioner Acute Care; ATTEND Nurse Practitioner Acute Care
PROC: 5A1D70Z Performance of Urinary Filtration, Intermittent, Less than 6 Hours Per Day (ICD-10-PCS; principal; 2018-07-03)
PROC: 5A1D70Z Performance of Urinary Filtration, Intermittent, Less than 6 Hours Per Day (ICD-10-PCS; 2018-07-04)
PROC: 5A1D70Z Performance of Urinary Filtration, Intermittent, Less than 6 Hours Per Day (ICD-10-PCS; 2018-07-05)
PROC: 30233N1 Transfusion of Nonautologous Red Blood Cells into Peripheral Vein, Percutaneous Approach (ICD-10-PCS; 2018-07-05)
DX: I13.2 Hypertensive heart and chronic kidney disease with heart failure and with stage 5 chronic kidney disease, or end stage renal disease (principal); N18.6 End stage renal disease; J96.21 Acute and chronic respiratory failure with hypoxia; E43 Unspecified severe protein-calorie malnutrition; I50.33 Acute on chronic diastolic (congestive) heart failure; D68.59 Other primary thrombophilia; E87.1 Hypo-osmolality and hyponatremia; R18.8 Other ascites; D63.8 Anemia in other chronic diseases classified elsewhere; I25.10 Atherosclerotic heart disease of native coronary artery without angina pectoris; J44.9 Chronic obstructive pulmonary disease, unspecified; Z79.01 Long term (current) use of anticoagulants; Z99.2 Dependence on renal dialysis; Z86.711 Personal history of pulmonary embolism; E88.09 Other disorders of plasma-protein metabolism, not elsewhere classified; Z68.30 Body mass index [BMI] 30.0-30.9, adult; E66.01 Morbid (severe) obesity due to excess calories; F11.10 Opioid abuse, uncomplicated; N50.89 Other specified disorders of the male genital organs; Z86.718 Personal history of other venous thrombosis and embolism; S81.801A Unspecified open wound, right lower leg, initial encounter; X58.XXXA Exposure to other specified factors, initial encounter; Y93.9 Activity, unspecified; Y92.129 Unspecified place in nursing home as the place of occurrence of the external cause
CPT/HCPCS: 36415; 70450-TC; 76870-TC; 80048-TC; 80053-TC; 80061-TC; 82728-TC; 83540-TC; 83605-TC; 83735-TC; 83880; 84100-TC; 84443-TC; 84484-TC; 84550-TC; 85025-TC; 85610-TC; 85730-TC; 86850-TC; 86921-TC; 87040-TC; 87081-TC; 90935-TC; 93970-TC; A4606; A6403; J0885; J1170; J1200; J1940; J3475; J7050; P9016-BL; Z7610

== ENCOUNTER 2018-09-14 06:28 | Inpatient (IN) | payer MEDICAID ==
[~2018-09-14] VITALS: Ht 170.2 cm; Wt 78.9 kg
[~2018-09-14 06:28] MED LIST changes: +FURO40TA5 PO; +HYDR-4354 PO; -HYDR-548 PO; -MAGN400T6 PO
--- NOTE | 2018-09-14 06:28 | NUR ---
PT BIBRA 39 FOR NON RADIATING CHEST PAIN AND SOB. PT ALSO COMPLAINING OF BILATERAL LEG PAIN AND HEADACHE. PT COMPLETED 30MINS DIALYSIS BEFORE BECOMING SYMPTOMATIC. PER RA, GAVE 1 SPRAY NITRO, ALBUTEROL TX. PT IS AAOX3. NOTED TACHYPNEA AND BILATERAL WHEEZING. SKIN WARM AND INTACT. PT PLACED IN GOWN AND ON CONTINUOUS SKULL CHOPPER
--- NOTE | 2018-09-14 06:29 | NUR ---
ER MD GIRON AT BEDSIDE FOR EVAL
--- NOTE | 2018-09-14 06:30 | NUR ---
Nayeli norton in [facility] - 09/14/18 at 0719 by MALACHI SENIOR WINDOWS SYSTEMS ENGINEER AT BEDSIDE
--- NOTE | 2018-09-14 06:52 | NUR ---
BLOOD SENT TO LAB WITH VASCULAR NEUROLOGIST
[2018-09-14] MEDS ORDERED: NITROGLYCERIN 0.4 MG/TAB BOTTLE ONE ×2 (06:55→06:57)
--- NOTE | 2018-09-14 06:55 | NUR ---
RADIOLOGY AT BEDSIDE FOR CXR
--- NOTE | 2018-09-14 06:58 | NUR ---
Nayeli norton in [facility] - 09/14/18 at 0715 by MALACHI RT AT BEDSIDE
[2018-09-14 07:00] LABS: HEMATOCRIT 29 % (39-51); HEMOGLOBIN 8.8 g/dL (13.5-17.5); MEAN CORPUSCULAR HGB CONC 30 g/dl (31.0-36.0); MEAN CORPUSCULAR VOLUME 80 fL (80-96); PLATELET COUNT (AUTO) 240 /CMM (150-450); RDW COEFFICIENT OF VARIATION 26.9 (11.5-15.0); RED BLOOD CELL COUNT(AUTO) 3.64 MIL/uL (4.5-6.0); WHITE BLOOD COUNT (AUTO) 5.5 K/uL (4.3-11.0)
[2018-09-14] MEDS ORDERED: NITROGLYCERIN 0.4 MG/TAB BOTTLE SL ONE (07:00)
[2018-09-14] MEDS ORDERED: ALBUTEROL FS 2.5 MG/3 ML VIAL.NEB CONTNEB ONE (07:00)
[2018-09-14] MEDS ORDERED: IPRATROPIUM NEB FS 0.5 MG/2.5 ML AMPUL.NEB NEB ONE (07:00)
--- NOTE | 2018-09-14 07:07 | NUR ---
RT CALLED FOR BREATHING TX
[2018-09-14 07:13] LABS: CALCIUM, SERUM 8.4 mg/dL (8.5-10.1); CREATININE 2.2 mg/dL (0.6-1.3); POTASSIUM 4.4 mmol/L (3.5-5.1)
--- NOTE | 2018-09-14 07:14 | NUR ---
CALLED RT FOR ABG, EN ROUTE TO PATIENT
--- NOTE | 2018-09-14 07:15 | NUR ---
RT AT BEDSIDE
--- NOTE | 2018-09-14 07:15 | NUR ---
CALLED DR. [facility]SE[facility], DR JESSI ARAGON.
[2018-09-14 07:18] LABS: INR 1.3 (0.87-1.13)
[2018-09-14 07:19] LABS: TROPONIN I 0.023 ng/mL (0.00-0.056)
[2018-09-14] MEDS ORDERED: ALBUTEROL FS 2.5 MG/3 ML VIAL.NEB ONE (07:21)
[2018-09-14] MEDS ORDERED: IPRATROPIUM NEB FS 0.5 MG/2.5 ML AMPUL.NEB ONE (07:22)
[2018-09-14] MEDS ORDERED: HYDROMORPHONE INJ 0.5 MG/0.5 ML SYRINGE IV ONE (07:30)
[2018-09-14] MEDS ORDERED: diphenhydrAMINE HCL 25 MG CAPSULE PO ONE (07:30)
--- NOTE | 2018-09-14 07:31 | NUR ---
REPORT RECEIVED FROM ESTEPHANIA DELGADO FOR LISSETTE. PENDING ADMISSION. NOTED RESP DISTRESS WHICH MD IS AWARE OF; RT AT BEDSIDE FOR BREATHING TX. PT STATES "I FEEL LIKE SHIT" AND REPORTS HEADACHE.
[2018-09-14] MEDS ORDERED: diphenhydrAMINE HCL 50 MG CAPSULE ONE (07:34)
[2018-09-14] MEDS ORDERED: HYDROMORPHONE 1 MG/1 ML DISP.SYRIN ONE ×2 (07:34→09:09)
[2018-09-14 07:36] LABS: NEUTROPHILS % (MANUAL) 84 (42-76)
[2018-09-14 07:37] LABS: EOSINOPHILS % (MANUAL) 2 % (0-4); LYMPHOCYTES % (MANUAL) 6 % (16-48); MONOCYTES % (MANUAL) 8 % (0-11.0)
[2018-09-14] MEDS ORDERED: MAGN400T6 PO (07:53)
--- NOTE | 2018-09-14 08:10 | NUR ---
PT TOLERATING WELL ON 3L VIA NC
--- NOTE | 2018-09-14 08:20 | NUR ---
PT IN CT FOR CT PULMONARY ANGIO
[2018-09-14] MEDS ORDERED: CT SWABBABLE VALVE TRANS SET 1 EA INFUS.SET MC ONE (08:22)
[2018-09-14] MEDS ORDERED: IV NS 0.9% 250 ML IV ONE (08:22)
[2018-09-14] MEDS ORDERED: IOHEXOL-350 100 ML VIAL IV ONE (08:22)
--- NOTE | 2018-09-14 08:32 | NUR ---
REPORT GIVEN TO LASHAE DELGADO FOR ADMISSION
--- NOTE | 2018-09-14 08:54 | NUR ---
REVIEWED ELEVATED BP WITH DR GIRON. NO ORDERS FOR ANTIHYPERTENSIVES AT THIS TIME. C/O PAIN AND ANXIETY, NEW ORDERS NOTED.
[2018-09-14] MEDS ORDERED: HEPARIN INFUSION/D5W 0 ML IV ONE (08:57)
[2018-09-14] MEDS ORDERED: HEPARIN INFUSION/D5W 500 ML IV PRN (09:00)
[2018-09-14] MEDS ORDERED: HYDROMORPHONE INJ 0.5 MG/0.5 ML SYRINGE IV PRN (09:00)
[2018-09-14] MEDS ORDERED: ENOXAPARIN SODIUM 80 MG/0.8 ML DISP.SYRIN SQ STA (09:07)
[2018-09-14] MEDS ORDERED: ENOXAPARIN SODIUM 80 MG/0.8 ML DISP.SYRIN SQ ONE (09:08)
--- NOTE | 2018-09-14 09:15 | NUR ---
MEDICATED ORDERED. CLARIFIED WITH DR GIRON - NO HEPARIN DRIP. ONLY LOVENOX.
--- NOTE | 2018-09-14 09:25 | NUR ---
PT TRANSPORTED TO [facility] RM 117-1 IN GUARDED CONDITION VIA ACLS PROTOCOL
--- NOTE | 2018-09-14 09:30 | NUR ---
[facility]/RN ADMITTING NOTES RECEIVED PT FROM ER VIA YAYA. A/OX4. PLACED ON TELE, SR HR 70S ON TELEMONITOR. PLACED ON 3L O2 VIA NC. SPO2 WNL. INITIAL ASSESSMENT AND VS TAKEN. ORIENTED TO ROOM AND USE OF CALL LIGHT. C/O 08/09 OF SHARONDA LOW EXT. RCHEST WALL HD CATH INTACT. LFA G 20 AND REJ G18 INTACT AND PATENT. CALL LIGHT WITHIN REACH. WILL CONT TO MONITOR NOTIFIED DR SOFIE BOWEN FOR ADMITTING ORDERS AND PT'S BP
--- NOTE | 2018-09-14 10:00 | NUR ---
RN NOTES RECEIVED ADMISSION FROM DR SOFIE BOWEN: ADMIT TO JOHN, ROUTINE VS, CODE STATUS, RESUME ALL HOME MEDS AND HYDRALAZINE 50 MG PO Q6HR PRN SBP>160 AND DBP>100. ORDERS NOTED AND CARRIED OUT
[2018-09-14] MEDS: hydrALAZINE HCL 50 MG TABLET PO PRN ×2 (10:39→16:43)
[2018-09-14] MEDS: LORAZEPAM 1 MG TABLET PO SCH ×2 (11:07→18:28)
[2018-09-14] MEDS: diphenhydrAMINE HCL ELIX 25 MG/10 ML UDC PO SCH ×2 (11:07→16:05)
[2018-09-14 12:00] VITALS: BP_SYST 162; BP_SYST 180; BP_DIAS 118; BP_DIAS 93
[2018-09-14] MEDS: GABAPENTIN 300 MG CAPSULE PO SCH ×2 (14:10→16:05)
[2018-09-14 16:00] VITALS: BP 179/110
[2018-09-14] MEDS: HYDROCODONE/APAP 10/325MG 1 EA TABLET PO PRN (16:05)
[2018-09-14] MEDS: WARFARIN SODIUM 2 MG TABLET PO SCH (16:19)
--- NOTE | 2018-09-14 17:00 | NUR ---
RN NOTES SEEN AND EXAMINED BY DR. ARRIETA, NOTIFIED RE: PT'S SBP ON 170S.
[2018-09-14] MEDS: HYDROMORPHONE INJ 2 MG/ML DISP.SYRIN IV PRN ×2 (17:26→21:46)
--- NOTE | 2018-09-14 17:30 | NUR ---
RN NOTES RECHECKED BP 154/98
--- NOTE | 2018-09-14 19:14 | NUR ---
RN NOTES PT IN STABLE CONDITION. NO ACUTE CHANGES NOTED THROUGHOUT SHIFT. SAFETY MEASURES OBSERVED AT ALL TIMES. ALL NEEDS ANTICIPATED. ENDORSED TO PM SHIFT RN FOR LISSETTE
--- NOTE | 2018-09-14 19:38 | NUR ---
TD RN NOTES RECEIVED PT ON BED. A/O X4. ON NASAL CANNULA 3LPM NO RESPIRATORY DISTRESS NOTED. ON TELE MONITOR SR 94. IV ACCESS ON LFA G20 AND LEJ G18 PATENT AND INTACT. HD ACCESS ON RIGHT CHEST WALL HD NO BLEEDING NOTED. HEAD OF BED ELEVATED. SIDE RAILS UP. CALL LIGHT WITHIN REACH. BED ALARM ON. WILL CONTINUE TO MONITOR PT CLOSELY.
[2018-09-14 20:00] VITALS: BP 158/116
--- NOTE | 2018-09-14 20:23 | NUR ---
TD RN NOTES PT WANTED TO GO OUTSIDE. INFORMED PT THAT HE'S BLOOD PRESSURE IS HIGH. AND EXPLAINED TO THE PT THAT GOING OUT AND MOVING WILL INCREASE HIS BLOOD PRESSURE FURTHER . CHARGED NURSE INFORMED ABOUT THE SITUATION.
[2018-09-14] MEDS: CLONIDINE HCL 0.1 MG TABLET PO PRN (21:02)
[2018-09-14] MEDS: TAMSULOSIN 0.4 MG CAP.SR.24H PO SCH (21:02)
[2018-09-14] MEDS: AMITRIPTYLINE HCL 25 MG TABLET PO SCH (21:02)
[2018-09-14] MEDS: CARVEDILOL 12.5 MG TABLET PO SCH (21:03)
[2018-09-14 21:30] VITALS: BP 155/100
[2018-09-14] MEDS ORDERED: ACETAMINOPHEN 325 MG TABLET PO PRN (22:00)
[2018-09-14] MEDS ORDERED: BENZOCAINE DENTAL GEL 7.5% 9.9 GM TUBE MM PRN ×2 (22:00)
--- NOTE | 2018-09-14 22:33 | NUR ---
TD RN NOTES PT WANTS ACETAMINOPHEN AND ORAJEL FOR TOOTH PAIN. CALLED BROADCAST ENGINEER DOCTOR. ORDERED ACETAMINOPHEN AND ORAJEL. WILL CONTINUE TO MONITOR.
--- NOTE | 2018-09-14 22:34 | NUR ---
TD RN NOTES PT WENT OUT ACCOMPANIED BY RN PER PT REQUEST. PER PT HE WANTS FRESH AIR. EXPLAINED RISK OF GOING OUT. PT WANTS TO GO OUT. CHARGE NURSE INFORMED. PT SHOUTING IN THE PARKING LOT FOR HEMSTITCHER. EXPLAINED SMOKING IS NOT ALLOWED IN THE HOSPITAL. CHARGE NURSE INFORMED. WILL CONTINUE TO MONITOR PT.
--- NOTE | 2018-09-14 23:00 | NUR ---
TD RN NOTES PT REFUSED TO HAVE HIS NASAL CANNULA 6LPM TO BE DECREASE BY 3LPM. PT SATURATING AT 100%, NO RESPIRATORY DISTRESS NOTED. HE SAID HE WANTS THE OXYGEN AT 6LPM. EXPLAINED THE RISK AND BENEFITS.
[2018-09-15] VITALS: BP 143/92
[2018-09-15] MEDS: LORAZEPAM 1 MG TABLET PO SCH ×3 (02:47→17:56)
[2018-09-15] MEDS: HYDROMORPHONE INJ 2 MG/ML DISP.SYRIN IV PRN ×5 (02:48→19:52)
[2018-09-15 04:00] VITALS: BP 150/100
--- NOTE | 2018-09-15 04:28 | NUR ---
TD RN NOTES PT TRYING TO GET OUT OF BED. BED ALARM WENT ON. EXPLAINED TO PT RISK OF FALLING. PT STILL WANTS TO GO OUT OF BED. BED ALARM ON. SIDE RAILS UP. WILL CONTINUE CLOSE MONITORING TO THE PT.
--- NOTE | 2018-09-15 07:21 | NUR ---
TD RN NOTES NO ACUTE CHANGES NOTED DURING THE SHIFT. PROVIDED COMFORT AND SAFETY. DUE MEDS GIVEN. WILL ENDORSE TO THE AM NURSE FOR CONTINUITY OF CARE.
[2018-09-15 08:00] VITALS: BP_SYST 122; BP_SYST 163; BP_DIAS 114; BP_DIAS 63
[2018-09-15] MEDS: diphenhydrAMINE HCL ELIX 25 MG/10 ML UDC PO SCH ×2 (08:14→17:08)
[2018-09-15] MEDS: GABAPENTIN 300 MG CAPSULE PO SCH ×3 (08:14→17:08)
[2018-09-15] MEDS: CARVEDILOL 12.5 MG TABLET PO SCH ×2 (08:15→21:22)
[2018-09-15] MEDS: ESCITALOPRAM OXALATE (10 MG) 10 MG TABLET PO SCH (08:15)
[2018-09-15] MEDS: MAGNESIUM OXIDE 400 MG TABLET PO SCH (08:16)
[2018-09-15] MEDS ORDERED: BENZOCAINE DENTAL GEL 7 GM TUBE MM PRN (08:30)
--- NOTE | 2018-09-15 10:42 | NUR ---
WOUND CARE CONSULT: PT PRESENTS WITH RT LOWER LEG WOUND,PRESENT ON ADMISSION. RECOMMEND DPM CONSULT. DEFER TO DPM FOR WOUND TREATMENT PLAN. WILL SEE PRN. Addendum: 09/15/18 at 1043 by KIP ESCAMILLA WNDNU Amended: Links added.
[2018-09-15] MEDS ORDERED: diphenhydrAMINE HCL/ZINC ACET CREAM 28.3 GM TUBE TP PRN (14:00)
[2018-09-15] MEDS: HYDROCODONE/APAP 10/325MG 1 EA TABLET PO PRN (14:55)
[2018-09-15 16:00] VITALS: BP 143/96
[2018-09-15] MEDS: WARFARIN SODIUM 2 MG TABLET PO SCH (17:10)
[2018-09-15] MEDS ORDERED: EPOETIN ALFA (10,000 UNIT) 10,000 UNIT/ML VIAL IV ONE (17:30)
[2018-09-15 20:00] VITALS: BP 159/110
--- NOTE | 2018-09-15 20:00 | NUR ---
MS DOC INITIAL NOTES SEEN PT SITTING IN BED AWAKE AND ALERT COMPLAINING OF GENERALIZED PAIN .HE'S TRYING TO GET OUT OF HIS ROOM BUT STARTED TALKING TO HIM THAT HE NEEDS TO STAY IN HIS ROOM BECAUSE OF HIS ISOLATION PRECAUTION. THEN PATIENT INSISTED THAT HE NEEDS HIS DILAUDID. NO SIGNS OF ANY ACUTE DISTRESS NOTED. I SPOKE TO HIM THAT I WILL CHECKED IF ITS TIME. KEPT HIM SAFE AND COMFORTABLE AT ALL TIMES. PLACE CALL LIGHT AT REACH. WILL CONTINUE MONITORING.
[2018-09-15] MEDS: AMITRIPTYLINE HCL 25 MG TABLET PO SCH (21:24)
[2018-09-15] MEDS: TAMSULOSIN 0.4 MG CAP.SR.24H PO SCH (21:24)
--- NOTE | 2018-09-15 21:30 | NUR ---
TELEPHONE LINEWORKER NOTES PT SEEMS COMFORTABLE AFTER PAIN MEDS GIVEN BY ANOTHER NURSE. ROUTINE MEDS GIVEN WELL, NO ASPIRATION NOTED. WILL CONTINUE MONITORING.
[2018-09-15] MEDS: MUPIROCIN OINT 2% 22 GM TUBE SCH (21:39)
[2018-09-16] VITALS (11 sets, daily range): BP systolic 140–152; BP diastolic 86–104
[2018-09-16] MEDS: HYDROMORPHONE INJ 2 MG/ML DISP.SYRIN IV PRN ×5 (00:52→20:09)
--- NOTE | 2018-09-16 01:00 | NUR ---
TENTER FRAME BACK TENDER/NOTES PAIN MEDS GIVEN ARIE IVP ORDERED BY ANOTHER NURSE PER PT REQUESTED FOR HIS GENERALIZED PAIN.KEPT HIM WARM AND COMFORTABLE AT ALL TIMES. SAFETY PRECAUTION IMPLEMENTED AND OBSERVED. WILL CONTINUE MONITORING. PLACE CALL LIGHT AT REACH.
[2018-09-16] MEDS: LORAZEPAM 1 MG TABLET PO SCH ×3 (03:00→20:09)
--- NOTE | 2018-09-16 04:58 | NUR ---
MS DOC NOTES PT WOKE UP AND COMPLAINED OF GENERALIZED PAIN. DILAUDID ADMINISTERED BY ANOTHER NURSE CINDY ORDERED ARIE IVP . EDUCATE PT FOR SIDE EFFECT AND PT AWARE. KEPT HIM SAFE AT ALL TIMES. WILL CONTINUE MONITORING. PLACE CALL LIGHT AT REACH.
--- NOTE | 2018-09-16 06:46 | NUR ---
MS SPOT WELDER BODY ASSEMBLY CLOSING NOTES PT SLEEPING AT THIS TIME BUT AROUSES TO TOUCH . NO SIGNS OF ANY ACUTE DISTRESS NOTED. RESPIRATION EVEN AND NON-LABORED, VITAL SIGNS STABLE . ALL DUE MEDS GIVEN AND ALL NEEDS MET. KEPT HIM WARM AND COMFORTABLE AT ALL TIMES. BED IN LOW AND LOCK IN POSITION. PLACE CALL LIGHT AT REACH. WILL CONTINUE MONITORING. ENDORSE TO AM NURSE FOR CONTINUITY OF CARE.
--- NOTE | 2018-09-16 07:25 | NUR ---
MS RN OPENING NOTES RECEIVED PT ON BED.ALERT/ORIENTED X4 WITH MILD CONFUSION.ON 4L O2 VIA NC WITH O2 95%.NO SOB AND ACUTE DISTRESS NOTED.IV LINE IS ON LEFT FA G 20,LEFT JUGULAR G 18,SITE IS CLEAN,DRY AND INTACT.HD CATHETER ON RIGHT CHEST WALL,SITE IS CLEAN AND DRY.SAFETY IS MAINTAINED ALL THE TIME.BED IS IN LOW POSITION AND LOCKED.CALL LIGHT IS WITHIN REACH.WILL CONTINUE TO MONITOR THE PT CLOSELY.
[2018-09-16] MEDS: diphenhydrAMINE HCL ELIX 25 MG/10 ML UDC PO SCH ×2 (08:10→17:03)
[2018-09-16] MEDS: MAGNESIUM OXIDE 400 MG TABLET PO SCH (08:11)
[2018-09-16] MEDS: GABAPENTIN 300 MG CAPSULE PO SCH ×3 (08:11→17:03)
[2018-09-16] MEDS: ESCITALOPRAM OXALATE (10 MG) 10 MG TABLET PO SCH (08:11)
--- NOTE | 2018-09-16 08:50 | NUR ---
MS RN NOTES CALLED [facility] AND SPOKE TO NII,VERIFIED THAT NO DIALYSIS TODAY AND POSSIBLY ON TOMORROW.SO TAB COREG 25MG PO GIVEN NOW.
[2018-09-16] MEDS: CARVEDILOL 12.5 MG TABLET PO SCH ×2 (08:59→20:09)
[2018-09-16] MEDS ORDERED: FEE PK DOSING 1 MIN EA MC ONE (10:27)
[2018-09-16] MEDS ORDERED: VANCOMYCIN 500 MG in IV D5W 100 ML IV PRN (10:30)
[2018-09-16 10:37] LABS: INR 2.4 (0.87-1.13)
[2018-09-16] MEDS: MEROPENEM 500 MG in IV NS 0.9% 50 ML IV SCH ×2 (10:46→22:18)
[2018-09-16] MEDS ORDERED: VANCOMYCIN 1 GM in IV D5W 250 ML IV ONE ×2 (12:00→17:30)
[2018-09-16] MEDS ORDERED: IOHEXOL-350 100 ML VIAL IV ONE (12:41)
[2018-09-16] MEDS ORDERED: METOPROLOL TARTRATE INJ 5 MG/5 ML AMPUL ONE ×3 (13:27→14:11)
--- NOTE | 2018-09-16 13:45 | NUR ---
MS RN, patient stated that patient slip down from bed to floor , asymtomatic no injury noted primary nurse left message to by primary nurse waiting for returned call back vitals will continue to assess and evaluate
[2018-09-16] MEDS ORDERED: NITROGLYCERIN 0.4 MG/TAB BOTTLE ONE (13:59)
[2018-09-16 14:11] LABS: ABG BASE EXCESS -2.2 mmol/L; ABG OXYGEN SATURATION 98.9 % (92.0-98.5); ABG PCO2 50.3 mmHg (35.0-45.0); ABG PH 7.302 (7.350-7.450); ABG PO2 308.1 mmHg (75.0-100.0); AaDO2 209.5 mmHg; COHb 1.9 % (0.5-1.5); MetHb 0.3 % (0.0-1.5); O2Hb 96.7 % (94.0-97.0); SITE, ABG Right Radial; VENT MODE, BG NRB MASK
[2018-09-16] MEDS ORDERED: IOHEXOL-300 100 ML VIAL IV ONE (14:28)
--- NOTE | 2018-09-16 15:30 | NUR ---
MS RN NOTES PT RECEIVED FROM [facility],FROM [facility] THEY GAVE 50MG METOPROLOL.SO THET ORDERED TO MONITOR THE PT V/S Q15MT X1HR AND THEN Q30MT X2HRS.NEW ORDERS NOTED AND CARRIED OUT.
[2018-09-16] MEDS: WARFARIN SODIUM 2 MG TABLET PO SCH (17:05)
[2018-09-16] MEDS: MUPIROCIN OINT 2% 22 GM TUBE SCH ×2 (17:07→20:20)
--- NOTE | 2018-09-16 18:48 | NUR ---
MS RN CLOSING NOTES PT IS ON BED.NO COMPLICATIONS NOTED AFTER [facility].VITAL SIGNS ARE CHECKING FREQUENTLY.PERIPHERAL IV LINE IS ON LEFT FA G 20,SITE IS CLEAN,DRY AND INTACT.ENDORSED TO CRUSHER TENDER RN FOR CONTINUITY OF CARE.
[2018-09-16] MEDS: ALBUTEROL HALF STRENGTH 1.25 MG/3 ML VIAL.NEB NEB SCH (19:52)
[2018-09-16] MEDS: IPRATROPIUM NEB FS 0.5 MG/2.5 ML AMPUL.NEB NEB SCH (19:52)
[2018-09-16] MEDS ORDERED: IMIPENEM/CILASTATIN 500 MG in IV NS 0.9% 100 ML IV SCH (21:00)
[2018-09-16] MEDS: AMITRIPTYLINE HCL 25 MG TABLET PO SCH (22:18)
[2018-09-16] MEDS: TAMSULOSIN 0.4 MG CAP.SR.24H PO SCH (22:18)
[2018-09-17] MEDS: IPRATROPIUM NEB FS 0.5 MG/2.5 ML AMPUL.NEB NEB SCH ×4 (01:26→19:52)
[2018-09-17] MEDS: ALBUTEROL HALF STRENGTH 1.25 MG/3 ML VIAL.NEB NEB SCH ×4 (01:26→19:52)
[2018-09-17] MEDS: HYDROMORPHONE INJ 2 MG/ML DISP.SYRIN IV PRN ×3 (01:55→22:01)
--- NOTE | 2018-09-17 01:55 | NUR ---
MS RN NOTES C/O GENERALIZED PAIN 8/10 ON PAIN SCALE.DILAUDID 1MG IV GIVEN ORDERED FOR SEVERE PAIN
[2018-09-17 04:00] VITALS: BP 141/99
[2018-09-17] MEDS: LORAZEPAM 1 MG TABLET PO SCH ×3 (04:31→21:16)
[2018-09-17] MEDS: HYDROCODONE/APAP 10/325MG 1 EA TABLET PO PRN (04:31)
--- NOTE | 2018-09-17 08:00 | NUR ---
RN NOTES PATIENT IN BED RESTING ALERT, ORIENTED X3 . PATIENT STARTED ON HD TOLERATING WELL. PERIPHERAL IV INTACT PATIENT. BED IN LOW LOCKED POSITION. CALL LIGHT WITHIN REACH. WILL CONTINUE TO MONITOR.
[2018-09-17] MEDS: diphenhydrAMINE HCL ELIX 25 MG/10 ML UDC PO SCH ×2 (08:28→16:07)
[2018-09-17] MEDS: GABAPENTIN 300 MG CAPSULE PO SCH ×3 (08:28→16:07)
[2018-09-17] MEDS: CARVEDILOL 12.5 MG TABLET PO SCH ×2 (08:29→21:16)
[2018-09-17] MEDS: MAGNESIUM OXIDE 400 MG TABLET PO SCH (08:29)
[2018-09-17] MEDS: ESCITALOPRAM OXALATE (10 MG) 10 MG TABLET PO SCH (08:29)
[2018-09-17] MEDS: MUPIROCIN OINT 2% 22 GM TUBE SCH ×2 (08:30→21:17)
[2018-09-17] MEDS: MEROPENEM 500 MG in IV NS 0.9% 50 ML IV SCH ×2 (11:26→22:01)
[2018-09-17 12:00] VITALS: BP 168/109
[2018-09-17] MEDS: CLONIDINE HCL 0.1 MG TABLET PO PRN (12:39)
[2018-09-17 15:27] LABS: CREATININE 3.6 mg/dL (0.6-1.3); POTASSIUM 5.2 mmol/L (3.5-5.1)
[2018-09-17 15:39] LABS: INR 2.86 (0.87-1.13)
[2018-09-17] MEDS ORDERED: VANCOMYCIN 1 GM in IV D5W 250 ML IV ONE (16:00)
[2018-09-17] MEDS: WARFARIN SODIUM 2 MG TABLET PO SCH (16:07)
--- NOTE | 2018-09-17 18:12 | NUR ---
RN NOTES PATIENT IN BED RESTING NO SOB OR ACUTE DISTRESS NOTED. NO ACUTE CHANGED NOTED. PATIENT POST HD WITH 3LITTERS OUTPUT. ALL DUE MEDICATIONS ADMINISTERED. ALL NEEDS MET WILL ENDORSE CARE TO PM SHIFT.
--- NOTE | 2018-09-17 19:36 | NUR ---
MS RN NOTES RECEIVED PT ON BED. SLEEPING. NO RESPIRATORY DISTRESS NOTED. HD ACCESS ON RCW HD CATH NO BLEEDING NOTED. RIGHT HAND G2 SL PATENT AND INTACT. HEAD OF BED ELEVATED. SIDE RAILS UP. CALL LIGHT WITHIN REACH. BED ALARM ON. WILL CONTINUE TO MONITOR
[2018-09-17 20:00] VITALS: BP 151/96
[2018-09-17] MEDS: AMITRIPTYLINE HCL 25 MG TABLET PO SCH (21:16)
[2018-09-17] MEDS: TAMSULOSIN 0.4 MG CAP.SR.24H PO SCH (21:16)
[2018-09-17] MEDS ORDERED: diphenhydrAMINE HCL 50 MG/ML VIAL ONE (23:53)
[2018-09-18] VITALS (9 sets, daily range): BP systolic 114–223; BP diastolic 89–138
--- NOTE | 2018-09-18 00:25 | NUR ---
MS RN NOTES PT REFUSED TP BENADRYL FOR ITCHING. PER PT HE WANTS IV BENADRYL. WILL CONTINUE TO MONITOR
--- NOTE | 2018-09-18 00:28 | NUR ---
MS RN NOTES PT REQUESTED BENADRYL 50MG IV FOR ITCHING. WILL CONTINUE TO MONITOR PT
[2018-09-18] MEDS: IPRATROPIUM NEB FS 0.5 MG/2.5 ML AMPUL.NEB NEB SCH ×4 (00:47→19:33)
[2018-09-18] MEDS: ALBUTEROL HALF STRENGTH 1.25 MG/3 ML VIAL.NEB NEB SCH ×4 (00:48→19:33)
[2018-09-18] MEDS: diphenhydrAMINE HCL 50 MG/ML VIAL IV PRN ×2 (00:58→12:15)
[2018-09-18] MEDS: HYDROCODONE/APAP 10/325MG 1 EA TABLET PO PRN ×3 (03:10→16:05)
[2018-09-18] MEDS: HYDROMORPHONE INJ 2 MG/ML DISP.SYRIN IV PRN ×3 (04:10→18:32)
[2018-09-18] MEDS: hydrALAZINE HCL 50 MG TABLET PO PRN ×2 (04:26→16:07)
[2018-09-18] MEDS: LORAZEPAM 1 MG TABLET PO SCH ×3 (04:31→20:09)
--- NOTE | 2018-09-18 06:30 | NUR ---
MS RN NOTES NO ACUTE CHANGES NOTED DURING THE SHIFT. PROVIDED COMFORT AND SAFETY. DUE MEDS GIVEN. WILL ENDORSE TO THE AM NURSE FOR CONTINUITY OF CARE.
--- NOTE | 2018-09-18 07:21 | NUR ---
MS/RN Patient received Patient received from night cleaner. A/O X3-4, vital signs stable, no shortness of breath or chest pain at this time. Safety measurs in place, call light within reach, will continue to monitor and ensure safety.
[2018-09-18] MEDS: ESCITALOPRAM OXALATE (10 MG) 10 MG TABLET PO SCH (09:09)
[2018-09-18] MEDS: GABAPENTIN 300 MG CAPSULE PO SCH ×3 (09:09→16:06)
[2018-09-18] MEDS: MAGNESIUM OXIDE 400 MG TABLET PO SCH (09:09)
[2018-09-18] MEDS: diphenhydrAMINE HCL ELIX 25 MG/10 ML UDC PO SCH ×2 (09:09→16:09)
[2018-09-18] MEDS: CARVEDILOL 12.5 MG TABLET PO SCH ×2 (09:10→20:10)
[2018-09-18] MEDS: MUPIROCIN OINT 2% 22 GM TUBE SCH ×2 (09:11→21:18)
[2018-09-18 09:28] LABS: INR 2.96 (0.87-1.13)
[2018-09-18] MEDS: MEROPENEM 500 MG in IV NS 0.9% 50 ML IV SCH (11:12)
--- NOTE | 2018-09-18 12:52 | NUR ---
MS/RN S/B Dr Ware Seen by Dr Ware - patient to be discharged to facility ([facility]) later today. fish hatchery manager calling facility to make them aware that patient is now MRSA nares.
--- NOTE | 2018-09-18 13:30 | NUR ---
MS/RN Report Report called to Olga at [facility], patient will be going to room 304, bed A.
--- NOTE | 2018-09-18 14:30 | NUR ---
MS/career services coordinator Wound care performed, pictures taken and placed in chart.
[2018-09-18] MEDS: CLONIDINE HCL 0.1 MG TABLET PO PRN ×2 (16:06→20:30)
[2018-09-18] MEDS: WARFARIN SODIUM 2 MG TABLET PO SCH (16:08)
--- NOTE | 2018-09-18 16:14 | NUR ---
MS/RN Unable to transport Unable to transport patient back to facility qat this time due to elevated blood pressure, reading 223/138. Dr Ware made aware, all prn medications administered. Ambulance placed on will call.
--- NOTE | 2018-09-18 17:15 | NUR ---
MS/RN Blood pressure Blood pressure rechecked following medications, now 198/128. Dr Ware called, order given for nifedipine 60mg PO X1 dose now. maintenance department manager made aware, stated that she would schedule ambulance bean picker machine operator for 8p, if bllod pressure was still elevated at that time then transport to be cancelled.
[2018-09-18] MEDS ORDERED: NIFEdipine XL 60 MG TAB PO ONE (17:30)
--- NOTE | 2018-09-18 18:12 | NUR ---
MS/RN End note Patient's blood pressure remains elevated at 179/113, all blood pressure medications administered. Will continue to monitor.
--- NOTE | 2018-09-18 19:23 | NUR ---
MS RN NOTES RECEIVE PT IN BED AWAKE A/OX 3, IN STABLE CONDITION, NOT IN DISTRESS, SAFETY MEASURES IN PLACE WILL CONTINUE TO MONITOR. AWAITING AMBULANCE FOR DISCHARGE. WILLL RE CHECK BP
--- NOTE | 2018-09-18 20:10 | NUR ---
CHECKED BP AT 169/99 WILL GIVE ROUTING BP MEDICATION
--- NOTE | 2018-09-18 20:30 | NUR ---
RECHECKED BP AT 178/107 WILL GIVE CLONIDINE 0.1 MG PO PER PROTOCOL
[2018-09-18] MEDS ORDERED: CLONIDINE HCL 0.1 MG TABLET PO STA (20:35)
--- NOTE | 2018-09-18 20:40 | NUR ---
MAHESH NEPHRO SPOKE TO DR. CARRIZALES RELAYED LATEST VS AND BP OF 178/[address] SOFIE BOWEN GIVE ONCE CLONIDINE 0.1 MG PO NOW AND INCREASE PRN OF CLONIDINE TO 0.2 MG PO Q4 PRN SBP>160, LOSARTAN POTASSIUM AT 100 MG PO DAILY START TONIGHT, NIFEDIPINE 60 MG PO BID START TOMORROW READ BACK AND VERIFIED ORDERS NOTED AND CARRIED OUT
[2018-09-18] MEDS ORDERED: LOSARTAN POTASSIUM 50 MG TABLET PO SCH (21:00)
[2018-09-18] MEDS: AMITRIPTYLINE HCL 25 MG TABLET PO SCH (21:09)
[2018-09-18] MEDS: TAMSULOSIN 0.4 MG CAP.SR.24H PO SCH (21:10)
--- NOTE | 2018-09-18 22:30 | NUR ---
RE CHECKED VS BP 155/60 T 98.6 R 19 P 85 TOLERATING ROOM AIR 99%
--- NOTE | 2018-09-18 22:50 | NUR ---
CALLED AMBULANCE FOR TRANSPORT BACK TO FACILITY CHARGE NURSE SPOKE TO [facility] FOR TRANSPORT ETA 0100 09/19/18
[2018-09-18] MEDS ORDERED: CLONIDINE HCL 0.1 MG TABLET PO PRN (23:00)
--- NOTE | 2018-09-18 23:16 | NUR ---
PAGEVirgilio AND SPOKE TO DR. BOWEN RELAYED CLARIFICATION OF ORDER OF BP MEDS PER DR. CARRIZALES CONTINUE TO ADD ADDITIONAL MEDS TO SNF ([facility])LOSARTAN POTASSIUM 100 MG PO DAILY AND NIFEDIPINE 60 MG PO BID ONLY NOTHING FOLLOWS. READ BACK AND VERIFIED ORDERS NOTED CARRIED OUT.
--- NOTE | 2018-09-19 00:10 | NUR ---
[facility] CAME FOR TRANSPORTATION
[2018-09-19 00:20] VITALS: BP 106/78
--- NOTE | 2018-09-19 00:27 | NUR ---
0: BP STILL 167/89 UNABLE TO TRANSPORT BACK TO FACILITY AMBULANCE LEFT. WILL CONT TO JVR PT Addendum: 09/19/18 at 0030 by DEEPA RAZA RN TIME: 2129 AT 09/18/18
--- NOTE | 2018-09-19 00:51 | NUR ---
PATIENT DISCHARGE PATIENT LEFT AT 0020, PATIENT STABLE CONDITION NO S/S OF DISTRESS NOTED, NO CHEST PAIN, NO COMPLAINS OF PAIN, VS STABLE,TOLERATING ROOM AIR, HEALTH EDUCATION AND EXIT CARE WAS PROVIDED, EDUCATION ABOUT DISEASE AND RISKS AND BENEFITS FOLLOW UP CARE PROVIDED, VERBALIZED UNDERSTANDING. DOCUMENTS WAS PROVIDED. CONTINUE MEDICATION PRESCRIPTION WAS PROVIDED. VERBALIZED UNDERSTANDING., ALL BELONGINGS WAS TAKEN, PACKET WAS GIVEN TO AMBULANCE EMT. REPORT GIVEN TO HARRY FLANNERY IV HEPLOCK REQUESTED NOT TO REMOVE FOR CONT IV ATB MEDS. IV HEPLOCK REMAIN AT L HAND22 INTACT AND PATENT REQUESTED BY PRUDENCIO DELGADO FOR ATB. Addendum: 09/19/18 at 0101 by DEEPA RAZA RN LEFT WITH AMBULANCE VIA [facility] WITH 2 EMT ALL REPORT WAS GIVEN
[2018-09-19] MEDS ORDERED: NIFEdipine (10MG) 10 MG CAPSULE PO SCH (09:00)
[2018-09-23] MEDS ORDERED: LOSA100T15 PO (09:42)
[2018-09-23] MEDS ORDERED: NIFE20CA PO (09:42)
[2018-09-23] MEDS ORDERED: DOCU-141 PO (09:42)
[2018-09-23] MEDS ORDERED: HYDR-4354 PO (09:42)
[2018-09-26] MEDS ORDERED: WARF-58 PO (15:02)
== END 2018-09-19 00:23 | DRG 194 ==
LOC: ER 06:29 → TELE-TD 08:29 → MEDSG1 09-15 09:03
PROVIDERS: ADMIT Internal Medicine Nephrology; ATTEND Internal Medicine Nephrology
PROC: 5A1D70Z Performance of Urinary Filtration, Intermittent, Less than 6 Hours Per Day (ICD-10-PCS; principal; 2018-09-14)
PROC: 5A1D70Z Performance of Urinary Filtration, Intermittent, Less than 6 Hours Per Day (ICD-10-PCS; 2018-09-15)
PROC: 5A1D70Z Performance of Urinary Filtration, Intermittent, Less than 6 Hours Per Day (ICD-10-PCS; 2018-09-17)
DX: I13.2 Hypertensive heart and chronic kidney disease with heart failure and with stage 5 chronic kidney disease, or end stage renal disease (principal); J96.02 Acute respiratory failure with hypercapnia; J15.6 Pneumonia due to other Gram-negative bacteria; N18.6 End stage renal disease; D68.59 Other primary thrombophilia; J15.9 Unspecified bacterial pneumonia; E87.5 Hyperkalemia; L89.890 Pressure ulcer of other site, unstageable; I50.32 Chronic diastolic (congestive) heart failure; R07.9 Chest pain, unspecified; I25.10 Atherosclerotic heart disease of native coronary artery without angina pectoris; Z86.718 Personal history of other venous thrombosis and embolism; Z99.2 Dependence on renal dialysis; J98.11 Atelectasis; G89.4 Chronic pain syndrome; D63.8 Anemia in other chronic diseases classified elsewhere; L29.9 Pruritus, unspecified; Z79.01 Long term (current) use of anticoagulants; Z86.711 Personal history of pulmonary embolism; J40 Bronchitis, not specified as acute or chronic; S81.801A Unspecified open wound, right lower leg, initial encounter; X58.XXXA Exposure to other specified factors, initial encounter
CPT/HCPCS: 36415; 36600; 71045-TC; 75574; 80048-TC; 80202-TC; 82803-TC; 83880; 84484-TC; 85025-TC; 85610-TC; 85730-TC; 87081-TC; 90935-TC; 94799-TC; A4216; A4606; A6253; A6403; G0378; J0885; J1170; J1200; J1644; J1650; J2185; J3370; J3490; J7040; J7050; J7060; Q0163; Q9967; Z7610

== ENCOUNTER 2019-03-29 18:03 | Inpatient (IN) | payer MEDICAID, OTHER ==
[~2019-03-29] VITALS: Ht 177.8 cm; Wt 60.3 kg
[~2019-03-29 18:03] MED LIST changes: +DOCU-141 PO; -FURO40TA5 PO; -HYDR-4077 PO; +LOSA100T31 PO; +MAGN400T6 PO; +NIFE20CA PO; -TRAM50TA2 PO; -VITA1TAB20 PO; +WARF-58 PO; -WARF3TAB59 PO
[2019-03-29] MEDS ORDERED: diphenhydrAMINE HCL 50 MG/ML VIAL IM ONE (19:00)
[2019-03-29 19:01] LABS: BASOPHILS # (AUTO) 0.1 /CMM (0.0-0.2); HEMOGLOBIN 9.5 g/dL (13.5-17.5); LYMPHOCYTES # (AUTO) 0.8 /CMM (0.8-4.8); MONOCYTES # (AUTO) 0.7 /CMM (0.1-1.30); WHITE BLOOD COUNT (AUTO) 6.3 K/uL (4.3-11.0)
[2019-03-29 19:04] LABS: BASOPHILS % (AUTO) 1.7 % (0.0-2.0); EOSINOPHILS % (AUTO) 3.6 % (0.0-6.0); HEMATOCRIT 30 % (39-51); LYMPHOCYTES % (AUTO) 12.9 % (20.0-44.0); MEAN CORPUSCULAR HGB CONC 32 g/dl (31.0-36.0); MEAN CORPUSCULAR VOLUME 89 fL (80-96); MONOCYTES % (AUTO) 10.4 % (2.0-12.0); NEUTROPHILS # (AUTO) 4.5 /CMM (1.8-8.9); NEUTROPHILS % (AUTO) 71.4 % (43.0-81.0); PLATELET COUNT (AUTO) 277 /CMM (150-450); RED BLOOD CELL COUNT(AUTO) 3.38 MIL/uL (4.5-6.0)
[2019-03-29] MEDS ORDERED: diphenhydrAMINE HCL 50 MG/ML VIAL ONE (19:05)
[2019-03-29 19:10] LABS: CALCIUM, SERUM 8.6 mg/dL (8.5-10.1); CARBON DIOXIDE 30 mmol/L (21-32); CHLORIDE 104 mmol/L (98-107); GLUCOSE 78 mg/dL (74-106); POTASSIUM 5.4 mmol/L (3.5-5.1); SODIUM SERUM 139 mmol/L (136-145); UREA NITROGEN, BLOOD 36 mg/dL (7-18)
[2019-03-29 19:22] LABS: ALANINE AMINOTRANSFERASE 34 U/L (12-78); ALBUMIN 3.5 g/dL (3.4-5.0); ALKALINE PHOSPHATASE 262 U/L (46-116); ASPARTATE AMINOTRANSFERASE 29 U/L (15-37); BILIRUBIN,DIRECT 0.1 mg/dL (0.0-0.2); BILIRUBIN,TOTAL 0.3 mg/dL (0.2-1.0); TOTAL PROTEIN, SERUM 8.7 g/dL (6.4-8.2)
--- NOTE | 2019-03-29 21:27 | NUR ---
SPOKE WITH GOYO CLEANER FURNITURE FROM [place], VITALS AND PT INFO GIVEN
--- NOTE | 2019-03-29 22:11 | NUR ---
REPORT GIVEN TO TELECOMMUNICATIONS FIELD ENGINEER FOR LISSETTE
[2019-03-29 22:30] VITALS: BP 150/95
[2019-03-29] MEDS ORDERED: AMITRIPTYLINE HCL 25 MG TABLET PO SCH (22:30)
[2019-03-29] MEDS ORDERED: MAG HYDROX/AL HYDROX/SIMETH 30 ML UDC PO PRN (22:30)
[2019-03-29] MEDS ORDERED: ZOLPIDEM TARTRATE 5 MG TABLET PO PRN (22:30)
[2019-03-29] MEDS ORDERED: MAGNESIUM HYDROXIDE 30 ML UDC PO PRN (22:30)
[2019-03-29] MEDS ORDERED: ACETAMINOPHEN 325 MG TABLET PO PRN (22:30)
[2019-03-29] MEDS ORDERED: HYDROCODONE/APAP 10/325MG 1 EA TABLET PO PRN (22:30)
[2019-03-29] MEDS ORDERED: ONDANSETRON HCL/PF 4 MG/2 ML VIAL IVP PRN (22:30)
--- NOTE | 2019-03-29 22:30 | NUR ---
RN OPEN NOTES RECEIVED FROM ER VIA [facility]. A/O X4. NO SIGNS OF DISTRESS OR DISCOMFORT. BREATHING EVEN AND UNLABORED. ON 2LPM O2 VIA NC. NO IV ACCESS AT THIS TIME. ORIENTED PATIENT TO UNIT AND ROOM. BELONGINGS LIST DONE. ATTACHED PATIENT TO TELE MONITOR WITH NSR 100 NOTED. BED IN LOW LOCKED POSITION WITH SIDE RAILS X2. CALL LIGHT WITHIN REACH. WILL CONTINUE TO MONITOR.
--- NOTE | 2019-03-29 22:40 | NUR ---
pt transfered to via [facility].
[2019-03-30] MEDS ORDERED: diphenhydrAMINE HCL 25 MG CAPSULE PO PRN
[2019-03-30] MEDS: HYDROMORPHONE INJ 2 MG/ML DISP.SYRIN IV PRN ×5 (00:48→17:46)
--- NOTE | 2019-03-30 00:48 | NUR ---
RN NOTES ADMINISTERED DILAUDID 1MG ORDERED AT PATIENT REQUEST FOR MID BACK PAIN 07/09. VSS. WILL CONTINUE TO MONITOR.
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
[2019-03-30] MEDS: LORAZEPAM 1 MG TABLET PO PRN ×2 (02:21→16:12)
--- NOTE | 2019-03-30 02:21 | NUR ---
RN NOTES ADMINISTERED ATIVAN 1MG ORDERED FOR ANXIETY, AT PATIENT REQUEST. VSS. WILL CONTINUE TO MONITOR.
--- NOTE | 2019-03-30 02:54 | NUR ---
RN NOTES ADMINISTERED BENADRYL 25MG TAB ORDERED FOR ITCHING, AT PATIENT REQUEST. VSS. WILL CONTINUE TO MONITOR.
[2019-03-30 04:00] VITALS: BP 143/88
--- NOTE | 2019-03-30 04:46 | NUR ---
RN NOTES ADMINISTERED DILAUDID 1MG ORDERED AT PATIENT REQUEST FOR MID BACK PAIN 05/09. VSS. WILL CONTINUE TO MONITOR.
[2019-03-30 06:30] LABS: BASOPHILS # (AUTO) 0.1 /CMM (0.0-0.2); BASOPHILS % (AUTO) 1.4 % (0.0-2.0); EOSINOPHILS % (AUTO) 2.7 % (0.0-6.0); HEMATOCRIT 23 % (39-51); HEMOGLOBIN 7.4 g/dL (13.5-17.5); LYMPHOCYTES # (AUTO) 1.3 /CMM (0.8-4.8); LYMPHOCYTES % (AUTO) 16.8 % (20.0-44.0); MEAN CORPUSCULAR HGB CONC 33 g/dl (31.0-36.0); MEAN CORPUSCULAR VOLUME 86 fL (80-96); MONOCYTES # (AUTO) 1.2 /CMM (0.1-1.30); MONOCYTES % (AUTO) 15.2 % (2.0-12.0); NEUTROPHILS % (AUTO) 63.9 % (43.0-81.0); PLATELET COUNT (AUTO) 229 /CMM (150-450); RED BLOOD CELL COUNT(AUTO) 2.65 MIL/uL (4.5-6.0); WHITE BLOOD COUNT (AUTO) 7.8 K/uL (4.3-11.0)
[2019-03-30] MEDS ORDERED: diphenhydrAMINE HCL 50 MG/ML VIAL IV PRN ×2 (06:30→12:00)
[2019-03-30 06:46] LABS: CALCIUM, SERUM 8.3 mg/dL (8.5-10.1); CARBON DIOXIDE 25 mmol/L (21-32); CHLORIDE 109 mmol/L (98-107); CREATININE 3.2 mg/dL (0.6-1.3); GLUCOSE 91 mg/dL (74-106); MAGNESIUM 1.8 mg/dL (1.8-2.4); PHOSPHORUS 4.1 mg/dL (2.5-4.9); POTASSIUM 5.1 mmol/L (3.5-5.1); SODIUM SERUM 142 mmol/L (136-145); UREA NITROGEN, BLOOD 41 mg/dL (7-18)
[2019-03-30 06:49] LABS: CHOLESTEROL 154 mg/dL (<200); HDL CHOLESTEROL 75 mg/dL (40-60); LDL 69 mg/dL (0-99); TRIGLYCERIDES 52 mg/dL (30-150)
--- NOTE | 2019-03-30 07:26 | NUR ---
RN CLOSING NOTES PATIENT AWAKE IN BED. A/O X3. NO SIGNS OF DISTRESS OR DISCOMFORT. BREATHING EVEN AND UNLABORED. ON 2LPM O2 VIA NC. HAS AURELIA MIDLINE, PATENT AND INTACT, NO SIGNS OF REDNESS OR INFILTRATION. PATIENT WAS JUST GIVEN BENADRYL 50MG ORDERED FOR ITCHING. ON TELE MONITORING WITH ST 112 NOTED. ALL NEEDS MET. NO SIGNIFICANT CHANGES THROUGH THE NIGHT BED IN LOW LOCKED POSITION WITH SIDE RAILS X2. CALL LIGHT WITHIN REACH. ENDORSED TO AM SHIFT FOR LISSETTE.
--- NOTE | 2019-03-30 07:47 | NUR ---
INLETTER OPENING NOTES RECEIVED PT IN BED, AWAKE, A/O X3-4. PT SUPPOSED TO BE ON OXYGEN AT 2LPM, PT TAKES IT OFF FROM TIME TO TIME PER NIGHT NURSE AND TOLERATING IT. AT THIS MOMENT PT TOLERATING RA, WITH NO ACUTE RESPIRATORY DISTRESS NOTED. PT DENIES PAIN OR ANY DISCOMFORT AT THIS MOMENT. ON TELEMONITORING ST WITH HR OF 112. PT KEPT HOB ELEVATED. PT KEPT COMFORTABLE. PT'S BED IN LOWEST, LOCKED POSITION WITH SR X 2. CALL LIGHT AND FLUID KEPT WITHIN REACH. WILL CONTINUE PLAN OF CARE.
[2019-03-30 08:00] VITALS: BP 145/96
[2019-03-30 08:00] LABS: EOSINOPHILS % (MANUAL) 4 % (0-4); LYMPHOCYTES % (MANUAL) 15 % (16-48); MONOCYTES % (MANUAL) 17 % (0-11.0); NEUTROPHILS % (MANUAL) 64 (42-76)
[2019-03-30] MEDS: NIFEdipine XL 60 MG TAB PO SCH ×2 (08:23→16:16)
[2019-03-30] MEDS ORDERED: diphenhydrAMINE HCL 50 MG/ML VIAL IV ONE (10:00)
--- NOTE | 2019-03-30 10:50 | NUR ---
ROLFER NOTES DR FORD AWARE PT HAS SCHEDULED TROPONIN AT THIS TIME. PT REFUSED TO BE STUCK BY NEEDLE. PT HAS MIDLINE ASKED MD FORD IF IT IS OKAY TO DRAW BLOOD FROM IT. STATED OK NOT TO HAVE THAT DRAWN PT TO BE DISCHARGED TODAY. CN AWARE.
--- NOTE | 2019-03-30 14:24 | NUR ---
RN NOTES PT JUST STARTED ON HD. SANDY MELGAR/DIALYSIS NURSE AWARE OF SITUATION THAT PT DOESN'T WANT TO SIGN THE CONSENT AT THIS MOMENT. PT BEING VERBALLY ABUSIVE AND THROWING PEN BY THE WALL WHILE EXPLAINING REGARDING CONSENTS AND PROCEDURE. SANDY MELGAR VERIFIED THEIR POLICY REGARDNG WRITTEN CONSENT WITH HER CLINICAL SCIENCES PROFESSOR, AND OKAY TO PROCEED DIALYSIS.
[2019-03-30 16:00] VITALS: BP 141/93
--- NOTE | 2019-03-30 16:10 | NUR ---
Social service consult requested by Vic Truong NP for homelessness needing placement. Pt. is a 34 year old male who was admitted to [facility] for chest pain and missed dialysis treatment. SW met with pt. at bedside. Pt. was sitting up in his bed. Pt. is ambulatory with the use of his wheelchair. Pt. is alert and oriented x4. Pt. states that [facility] [place] prior to a hospital stay at [address] [address]. , before being admitted to [facility]. Pt. states that he has no income. Pt. states he was receiving SSI benefits but missed appointments to renew benefits. Pt. did not provide an emergency contact at this moment and did not confirm the emergency contact listed on his face sheet. Pt. denies alcohol and recreational drug use. Pt. states he smokes cigarettes, About half a pack a day. Pt. states he has a psychiatric diagnosis of depression and is taking anti-depressive medication prescribed by a primary care doctor. Pt. denies current suicidal ideation at this time. SW provided pt. with clothing. Pt. is not able to go to half-way upon discharge due to need of dialysis treatment and no outpatient dialysis center has been identified at this moment. Per Procedures Nurse Adolfo, other options for placement are being explored. No other SW services needed at this time. SW is available if needed. RODOLFO will continue to consult with Procedures Nurse Adolfo regarding patients discharge plan.
[2019-03-30 16:16] VITALS: BP 141/93
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
[2019-03-30] MEDS ORDERED: WARFARIN SODIUM 7.5 MG TABLET PO SCH (17:00)
--- NOTE | 2019-03-30 18:24 | NUR ---
CHARGE NURSE NOTE PT LEFT AGAINST MEDICAL ADVICE. PT REFUSED LABS TO BE DRAWN TO ARRANGE CHAIR TIME. MIDLINE REMOVED WITH CATHETER TIP INTACT. PT REFUSED DISCHARGE EDUCATION AND PAPERWORK, REFUSED TO ARRANGE HD CHAIR TIME, REFUSED FOLLOW UP APPOINTMENT WITH [facility]. PT REFUSED TO SIGN PAPERWORK PER PROTOCOL. PT REFUSED TO ALLOW BELONGINGS TO BE CHECKED TO INSURE ALL BELONGINGS ARE WITH THE PT. PT GIVEN SNACK, PT PROVIDED WITH DINNER TRAY BUT REFUSED TO EAT DINNER TRAY. INFORMED PT OF RISKS AND BENEFITS OF LEAVING WITHOUT ARRANGING HD CHAIR TIME AND WITHOUT FOLLOW UP. SECURITY AND WINDOWS SERVER SUPPORT TECHNICIAN ASSISTED PT TO THE MAIN LOBBY WITHOUT INCIDENT.
== END 2019-03-30 18:24 | disposition left against medical advice (07) | DRG 194 ==
LOC: ER 18:03 → TELE1 21:46 → MED 22:03 → TELE 23:19 → MED 03-30 10:31
PROVIDERS: ADMIT Nurse Practitioner Acute Care
DX: I13.2 Hypertensive heart and chronic kidney disease with heart failure and with stage 5 chronic kidney disease, or end stage renal disease (principal); J90 Pleural effusion, not elsewhere classified; M32.14 Glomerular disease in systemic lupus erythematosus; E44.0 Moderate protein-calorie malnutrition; E87.5 Hyperkalemia; F11.20 Opioid dependence, uncomplicated; N18.6 End stage renal disease; I50.23 Acute on chronic systolic (congestive) heart failure; I25.10 Atherosclerotic heart disease of native coronary artery without angina pectoris; F41.9 Anxiety disorder, unspecified; F32.9 Major depressive disorder, single episode, unspecified; F17.210 Nicotine dependence, cigarettes, uncomplicated; Z59.0 Homelessness; Z76.5 Malingerer [conscious simulation]; Z86.711 Personal history of pulmonary embolism; Z99.2 Dependence on renal dialysis; Z95.828 Presence of other vascular implants and grafts; Z88.2 Allergy status to sulfonamides; L29.9 Pruritus, unspecified; D63.1 Anemia in chronic kidney disease; N25.0 Renal osteodystrophy; Z91.15 Patient's noncompliance with renal dialysis; Z68.1 Body mass index [BMI] 19.9 or less, adult
CPT/HCPCS: 36415; 71045-TC; 80048-TC; 80061-TC; 80076-TC; 83735-TC; 83880; 84100-TC; 84484-TC; 85025-TC; 85730-TC; 86704; 86705; 86706; 86803; 87081-TC; 87340; 90935-TC; G0378; J1170; J1200; Q0163

== ENCOUNTER 2019-04-05 18:29 | Emergency (ER) | payer OTHER ==
[~2019-04-05] VITALS: Ht 175.3 cm; Wt 68.0 kg
--- NOTE | 2019-04-05 19:17 | NUR ---
PT BIBSELF FOR SOB X THIS AM; O2 SAT ON RA 94%; PT AAOX4, PT ON MONITOR, NAD NOTED, PLACED ON 2LPM VIA NC, O2 SAT AT 96%. PT TO BED 12. PENDING MD RODRIGUEZ
[2019-04-05 19:50] LABS: BASOPHILS # (AUTO) 0.1 /CMM (0.0-0.2); BASOPHILS % (AUTO) 1.4 % (0.0-2.0); EOSINOPHILS % (AUTO) 2.7 % (0.0-6.0); HEMATOCRIT 28 % (39-51); LYMPHOCYTES % (AUTO) 15.1 % (20.0-44.0); MEAN CORPUSCULAR HGB CONC 32 g/dl (31.0-36.0); MEAN CORPUSCULAR VOLUME 88 fL (80-96); MONOCYTES # (AUTO) 0.7 /CMM (0.1-1.30); MONOCYTES % (AUTO) 10.9 % (2.0-12.0); NEUTROPHILS # (AUTO) 4.5 /CMM (1.8-8.9); NEUTROPHILS % (AUTO) 69.9 % (43.0-81.0); PLATELET COUNT (AUTO) 245 /CMM (150-450); RED BLOOD CELL COUNT(AUTO) 3.19 MIL/uL (4.5-6.0); WHITE BLOOD COUNT (AUTO) 6.5 K/uL (4.3-11.0)
[2019-04-05 19:58] LABS: CALCIUM, SERUM 8.7 mg/dL (8.5-10.1); CARBON DIOXIDE 29 mmol/L (21-32); CHLORIDE 103 mmol/L (98-107); CREATININE 3.7 mg/dL (0.6-1.3); GLUCOSE 94 mg/dL (74-106); POTASSIUM 5.8 mmol/L (3.5-5.1); SODIUM SERUM 138 mmol/L (136-145); UREA NITROGEN, BLOOD 36 mg/dL (7-18)
[2019-04-05 20:11] LABS: ALANINE AMINOTRANSFERASE 34 U/L (12-78); ALBUMIN 3.6 g/dL (3.4-5.0); ALKALINE PHOSPHATASE 271 U/L (46-116); ASPARTATE AMINOTRANSFERASE 31 U/L (15-37); B-TYPE NATRIURETIC PEPTIDE 14690 PG/ML (0-125); BILIRUBIN,DIRECT 0.1 mg/dL (0.0-0.2); BILIRUBIN,TOTAL 0.3 mg/dL (0.2-1.0); TOTAL PROTEIN, SERUM 9.3 g/dL (6.4-8.2)
--- NOTE | 2019-04-05 20:32 | NUR ---
INITIAL RESULTS OF DUPLEX VENOUS LOWER EXT EXAM SHOWED POSITIVE FOR THROMBUS AT LEFT CFV AND BILATERAL SFV LEVELS. ADVISED MARLA (PAC) AND AMBER.
[2019-04-05] MEDS ORDERED: diphenhydrAMINE HCL 50 MG/ML VIAL ONE ×2 (20:58→22:42)
[2019-04-05] MEDS ORDERED: ACETAMINOPHEN ES 500 MG TABLET ONE (20:58)
[2019-04-05] MEDS ORDERED: LORAZEPAM INJ 2 MG/ML VIAL ONE (20:59)
[2019-04-05] MEDS ORDERED: LORAZEPAM INJ 2 MG/ML VIAL IV ONE (21:00)
[2019-04-05] MEDS ORDERED: ACETAMINOPHEN 325 MG TABLET PO ONE (21:00)
[2019-04-05] MEDS ORDERED: diphenhydrAMINE HCL 50 MG/ML VIAL IV ONE ×2 (21:00→22:30)
[2019-04-05] MEDS ORDERED: CT SWABBABLE VALVE TRANS SET 1 EA INFUS.SET MC ONE (21:26)
[2019-04-05] MEDS ORDERED: IV NS 0.9% 250 ML IV ONE (21:26)
[2019-04-05] MEDS ORDERED: IOHEXOL-350 100 ML VIAL IV ONE (21:26)
[2019-04-05] MEDS ORDERED: ONDANSETRON HCL/PF 4 MG/2 ML VIAL IV ONE (23:30)
[2019-04-05] MEDS ORDERED: SODIUM POLYSTYRENE SULFONATE 15 G/60 ML BOTTLE PO ONE (23:30)
[2019-04-05] MEDS ORDERED: MORPHINE SULFATE INJ 2 MG/ML DISP.SYRIN IV ONE (23:30)
[2019-04-05] MEDS ORDERED: SODIUM POLYSTYRENE SULFONATE 15 G/60 ML BOTTLE ONE (23:34)
[2019-04-05] MEDS ORDERED: MORPHINE SULFATE INJ 4 MG/ML DISP.SYRIN ONE (23:35)
[2019-04-05] MEDS ORDERED: ONDANSETRON HCL/PF 4 MG/2 ML VIAL ONE (23:35)
--- NOTE | 2019-04-05 23:56 | NUR ---
[facility] CALLED FOR HIGHER LEVEL OF CARE, CASE PRESENTED TO YAO CHARGE NURSE. WILL FAX INFO PRESENTED.
--- NOTE | 2019-04-06 00:03 | NUR ---
CT RESULTS AND FACESHEET FAXED TO . AWAITING CALL BACK.
--- NOTE | 2019-04-06 00:17 | NUR ---
Called [facility] for transport, ETA 20min trip# [id number]
--- NOTE | 2019-04-06 00:30 | NUR ---
CALLED [facility], SPOKE TO SUJATA TO CANCEL TRANSPORT. [facility] TRANSPORT CANCELLED AT THIS TIME
--- NOTE | 2019-04-06 00:33 | NUR ---
SPOKE TO MAC COORDINATOR #[id number], INFORMED THAT ONLY OB AND PEDS BEDS AVAILABLE AT THIS TIME
--- NOTE | 2019-04-06 00:35 | NUR ---
PAGED DR. TALAMANTES FOR CONSULT
--- NOTE | 2019-04-06 00:41 | NUR ---
CALLED [facility] AND SPOKE TO BRIAN FOR HIGHER LEVEL OF CARE. FACESHEET FAXED OVER TO [phone]. AWAITING CALL BACK
--- NOTE | 2019-04-06 00:44 | NUR ---
SPOKE TO [facility], CASE PRESENTED REQUESTED. FACESHEET, CT, AND LAB RESULTS FAXED TO
--- NOTE | 2019-04-06 00:51 | NUR ---
SAGE TO [facility], INFO PROVIDED REQUESTED, STATES DR. MORAN WILL CALL BACK.
--- NOTE | 2019-04-06 01:11 | NUR ---
ARTEM MEDINA TALKING TO DR. MORAN.
--- NOTE | 2019-04-06 01:17 | NUR ---
SPOKE TO BRIAN AT [facility], INFORMED TO CALL [facility] AT [phone] TO BE TRANSFERRED TO CARDIOTHORACIC SURGERY FOR VASCULAR
--- NOTE | 2019-04-06 01:29 | NUR ---
ARTEM MEDINA SPOKE TO DR. HENLEY.
--- NOTE | 2019-04-06 01:34 | NUR ---
AWAITING CALL BACK FROM IR DR. STAPLES
--- NOTE | 2019-04-06 02:11 | NUR ---
PT WHEELED HIMSELF TO [facility] TO TALK TO THE PA. PT WAS INFORMED TO WAIT IN HIS ROOM AND THE PA WAS NOTIFIED OF THE PT'S REQUEST. PT IN WHEELCHAIR IN HIS ROOM
--- NOTE | 2019-04-06 02:27 | NUR ---
[facility] CALLED, DR PATEL THE CASE BECAUASE THEY ARE AT [facility] AND THEIR SERVICE IS AT [facility].
--- NOTE | 2019-04-06 04:41 | NUR ---
Patient is resting comfortably in wheelchair with eyes closed. Easily aroused. VSS
--- NOTE | 2019-04-06 06:04 | NUR ---
Patient is resting in wheelchair in bed with eyes closed. Easily aroused. VSS. Will continue to monitor pt for safety and comfort
--- NOTE | 2019-04-06 07:48 | NUR ---
CALL BACK FROM DR FERNANDA SUAREZ (IR),SPOKE WITH DR GIRON AND ACCEPTED PT,CELL# [phone], ANGIO OFFICE# . [facility] CALLED, AND SPOKE WITH CARMELLA DELGADO, SHE WILL VERIFY WITH DR SUAREZ IF THIS IS AN EMT[facility]A [place] SINCE PATIENT HAS HMO MEDICAL. IF EMTALA, SHE SAID THAT THERE'S NO PROBLEM ACCEPTING PT.
--- NOTE | 2019-04-06 08:20 | NUR ---
PT DESATURATING AT 80'S, MADE AWARE. LACED ON NON-REBREATHER MASK AT 15LPM O2, PT TOLERATING WELL, O2 SAT AT 97% AFTER 2MIN
--- NOTE | 2019-04-06 08:35 | NUR ---
PT PLACED ON SIMPLE MASK AT 5LPM OF O2, O2 SAT AT 99%
--- NOTE | 2019-04-06 10:08 | NUR ---
PATIENT WILL GO TO [facility] ACCEPTING MD CHRISTAL MICHAEL, ADDRESS: [address] [place] [id number], [address] ICU 7318, CALL FOR REPORT [phone].
--- NOTE | 2019-04-06 10:30 | NUR ---
TRANSPORT ARRANGED VIA [facility], SPOKE TO [facility] 1130, TRIP #[id number].
--- NOTE | 2019-04-06 10:35 | NUR ---
REPORT GIVEN TO LEI DELGADO FOR LISSETTE
--- NOTE | 2019-04-06 11:13 | NUR ---
CALL FROM LEI DELGADO, PATIENT IS GOING TO 5ICU ROOM 5106 INSTEAD AND NURSE IS KAYLEE DELGADO
[2019-04-06 12:00] VITALS: BP 164/100
[2019-04-06] MEDS ORDERED: HYDROMORPHONE 1 MG/1 ML DISP.SYRIN ONE (12:06)
--- NOTE | 2019-04-06 12:24 | NUR ---
PT WILL BE BROUGHT TO [facility]. Patient discharged to AMBULNZ UNIT 117 in stable condition. Written and verbal after care instructions given. Patient verbalizes understanding of instruction.
[2019-04-06] MEDS ORDERED: HYDROMORPHONE INJ 0.5 MG/0.5 ML SYRINGE IV ONE (12:30)
== END 2019-04-06 12:27 | disposition short-term general hospital (02) ==
LOC: ER 18:32
DX: I72.8 Aneurysm of other specified arteries (principal); R06.02 Shortness of breath; E87.5 Hyperkalemia; D64.9 Anemia, unspecified; I12.0 Hypertensive chronic kidney disease with stage 5 chronic kidney disease or end stage renal disease; N18.6 End stage renal disease; F41.9 Anxiety disorder, unspecified; F17.200 Nicotine dependence, unspecified, uncomplicated; Z99.2 Dependence on renal dialysis; Z59.0 Homelessness; Z86.711 Personal history of pulmonary embolism; Z86.718 Personal history of other venous thrombosis and embolism; Z98.890 Other specified postprocedural states; Z88.2 Allergy status to sulfonamides; Z88.6 Allergy status to analgesic agent; Z88.8 Allergy status to other drugs, medicaments and biological substances; Z79.01 Long term (current) use of anticoagulants
CPT/HCPCS: 36415; 71045; 71275; 80048; 80076; 83880; 84484; 85025; 85730; 93005; 93970; 96374; 96375; 96376; 99285; J1170; J1200 ×2; J2060; J2270; J2405; J7050; Q9967

== ENCOUNTER 2019-07-17 09:55 | Inpatient (IN) | payer OTHER ==
[~2019-07-17] VITALS: Ht 167.6 cm; Wt 57.2 kg
--- NOTE | 2019-07-17 11:05 | NUR ---
CHEST PAIN, ANXIETY, HEADACHE, SHORTNESS OF BREATH, AND LUNG PAIN SENT BY DR. ARRIETA FOR DIALYSIS CATHETER REMOVAL. CATHETER LOCATION RIGHT UPPER CHEST, AND FISTULA IN LEFT ARM. PT IS AOX4, HYPERTENSIVE, RR EVEN AND UNLABORED ON RA. NO ACUTE DISTRESS NOTED. SKIN INTACT. ON MONITOR AND AWAITING MD RODRIGUEZ. Addendum: 07/17/19 at 1208 by CJUWONO PT ON 2L O2 VIA NASAL CANNULA
--- NOTE | 2019-07-17 11:05 | NUR ---
PT ENDORSED TO ME FROM SANDY SEALS. PICC NURSE AT BEDSIDE FOR LINE INSERTION.
--- NOTE | 2019-07-17 11:13 | NUR ---
MIDLINE INSERTED AURELIA 18G PER SANDY KRAUSE
[2019-07-17 11:16] LABS: BASOPHILS # (AUTO) 0.1 /CMM (0.0-0.2); BASOPHILS % (AUTO) 1.3 % (0.0-2.0); EOSINOPHILS % (AUTO) 3.3 % (0.0-6.0); HEMATOCRIT 26 % (39-51); HEMOGLOBIN 8.5 g/dL (13.5-17.5); LYMPHOCYTES # (AUTO) 1.4 /CMM (0.8-4.8); LYMPHOCYTES % (AUTO) 15.3 % (20.0-44.0); MEAN CORPUSCULAR HGB CONC 33 g/dl (31.0-36.0); MEAN CORPUSCULAR VOLUME 86 fL (80-96); MONOCYTES # (AUTO) 1.9 /CMM (0.1-1.30); MONOCYTES % (AUTO) 20.7 % (2.0-12.0); NEUTROPHILS # (AUTO) 5.3 /CMM (1.8-8.9); NEUTROPHILS % (AUTO) 59.4 % (43.0-81.0); PLATELET COUNT (AUTO) 183 /CMM (150-450)
[2019-07-17] MEDS ORDERED: WARF-68 PO (11:20)
[2019-07-17 11:24] LABS: CALCIUM, SERUM 8.8 mg/dL (8.5-10.1); CARBON DIOXIDE 29 mmol/L (21-32); CHLORIDE 100 mmol/L (98-107); CREATININE 7.3 mg/dL (0.6-1.3); GLUCOSE 109 mg/dL (74-106); POTASSIUM 4.6 mmol/L (3.5-5.1); SODIUM SERUM 136 mmol/L (136-145); UREA NITROGEN, BLOOD 65 mg/dL (7-18)
[2019-07-17] MEDS ORDERED: LORAZEPAM INJ 2 MG/ML VIAL ONE (11:24)
[2019-07-17] MEDS ORDERED: LORAZEPAM INJ 2 MG/ML VIAL IV ONE (11:30)
--- NOTE | 2019-07-17 11:42 | NUR ---
[facility] PAGED
[2019-07-17] MEDS ORDERED: HYDROMORPHONE 1 MG/1 ML DISP.SYRIN IV ONE (12:00)
[2019-07-17] MEDS ORDERED: diphenhydrAMINE HCL 50 MG/ML VIAL IV ONE (12:00)
[2019-07-17] MEDS ORDERED: HYDROMORPHONE 1 MG/1 ML DISP.SYRIN ONE (12:09)
[2019-07-17] MEDS ORDERED: diphenhydrAMINE HCL 50 MG/ML VIAL ONE (12:09)
--- NOTE | 2019-07-17 12:14 | NUR ---
RECIEVED BED 117-1
[2019-07-17] MEDS ORDERED: MAG HYDROX/AL HYDROX/SIMETH 30 ML UDC PO PRN (12:30)
[2019-07-17] MEDS ORDERED: MAGNESIUM HYDROXIDE 30 ML UDC PO PRN (12:30)
[2019-07-17] MEDS ORDERED: ZOLPIDEM TARTRATE 5 MG TABLET PO PRN (12:30)
[2019-07-17] MEDS ORDERED: ONDANSETRON HCL/PF 4 MG/2 ML VIAL IVP PRN (12:30)
[2019-07-17] MEDS ORDERED: ACETAMINOPHEN 325 MG TABLET PO PRN (12:30)
[2019-07-17] MEDS ORDERED: Z GUARD REMEDY 2 OZ OINT TP PRN (12:30)
--- NOTE | 2019-07-17 12:39 | NUR ---
REPORT GIVEN TO SANDY CONRAD 117-1 TELE Addendum: 07/17/19 at 1320 by LUPE SANDY PUTNAM
[2019-07-17] MEDS: GABAPENTIN 300 MG CAPSULE PO SCH ×2 (13:00→16:33)
--- NOTE | 2019-07-17 13:15 | NUR ---
[facility]
[2019-07-17] MEDS ORDERED: diphenhydrAMINE HCL 25 MG CAPSULE PO PRN (13:30)
[2019-07-17 13:38] VITALS: BP 180/110
--- NOTE | 2019-07-17 14:00 | NUR ---
BALL MACHINE OPERATOR NOTE RECEIVED PATIENT CASIMIRO WITH DX CHF AND CARDIAC MYOPATHY. ALERT , ORIENTED X3 , ON2L NC, NO SOB AT THIS TIME , PLACED PN TELE ST HR 111 AT THIS TIME , MID LINE ON RT UPPER ARM IN PLACE , AV SHUNT ON LT UPPER ARM WITH BRUIT SOUND , HOSPITAL ORIENTATION DONE, VS TAKEN , REFUSED TO CHECK BELONGING , CALLED TO DR SAMUELS NOTIFIED THAT PATIENT WANTS DILAUDID AND BENADRYL IV , BUT DR SAMUELS STATED OK TO GIVE PO , ALSO DR AWARE THAT BP 181/110 AND RECHECKED 213/144, STATED CONT TO GIVE PO MEDS ORDERED, WILL CONT TO MONITOR , BED IN LOWEST AND LOCKED POSITION , CALL LIGHT WITHIN REACH
--- NOTE | 2019-07-17 14:30 | NUR ---
PROCESS COACH NOTE PT REFUSED TO CHECK HIS BELONGINGS . EXPLAINED THE HOSPITAL POLICY TO CHECK ITEMS UPON ADMISSION. PT HAS REGISTERED ART THERAPIST AND REFUSE TO GIVE TO NURSING STAFF.
--- NOTE | 2019-07-17 15:00 | NUR ---
LINEMAN SERVICE OR WORK DISPATCHER NOTE PATIENT WANTS TO SMOKE , BECOME NONCOMPLIANT WITH CARE ,CALLED SECURITY ASSISTED HIM TO GO TO [facility]IO TO SMOKE , STUFF RN AT BEDSIDE
[2019-07-17] MEDS: HYDROCODONE/APAP 5/325MG 1 EACH TABLET PO PRN ×2 (15:35→21:00)
[2019-07-17] MEDS: LOSARTAN POTASSIUM 50 MG TABLET PO SCH (15:38)
--- NOTE | 2019-07-17 16:00 | NUR ---
BUTTONHOLE MARKER NOTE REFUSED TO TO NOHELIA TROPONIN LEVEL ,EXPLAINED HOW IMPORTANT, STILL REFUSED , OFFERED X3, EASILY BECOME AGITATED , ALSO NONCOMPLIANT WITH DIET STILL WANTS ORANGE JUICE WITH HX HD , REFUSED BP MEDS , SPOKE WITH DR SAMUELS , AWARE OF IT , WILL CONT TO ENCOURAGED TO TAKE PO BP MEDS Addendum: 07/17/19 at 1646 by INDY WALL RN CONSENT FOR SMOKING SIGNED
[2019-07-17] MEDS: NIFEdipine (10MG) 10 MG CAPSULE PO SCH ×2 (16:33→17:00)
[2019-07-17] MEDS: LORAZEPAM 1 MG TABLET PO PRN (16:59)
--- NOTE | 2019-07-17 17:24 | NUR ---
PRINT OPERATOR NOTE OFFERED AGAIN BP MEDS BUT STILL REFUSED CHARGE NURSE NOTIFIED , WENT TO SMOKE , NONCOMPLIANT WITH CARE DESPITE TO EXPLAINED ABOUT PATIENT CONDITION , CALLED TO DR SAMUELS , SPOKE WITH LINSEY SAL Addendum: 07/17/19 at 1746 by INDY WALL RN EXPLAINED ABOUT SMOKING POLICY , BUT PATIENT STILL WANTS TO SMOKE , AWARE THAT PATIENT SIGNED CONSENT FOR SMOKING SPOKE WITH DR SAMUELS NOTIFIED THAT PATIENT REFUSING BP MEDS ,AWARE THAT BP NOW 195/129, REFUSED TO NOHELIA TROPONIN LEVEL,ALSO NOTIFIED THAT PATIENT WANTS TO SEE HIM , STATED THAT WILL COME SOON , NO NEW ORDER AT THIS TIME Addendum: 07/17/19 at 1751 by INDY WALL RN TAKEN TO SMOKE ON W\C EXPLAINED RISK FOR SMOKING , STILL AGITATED AND CURSING STAFF , SAYING F EXPRESSION
--- NOTE | 2019-07-17 19:06 | NUR ---
MS RN NOTES DR SAMUELS AT BEDSIDE SEEN PT. NOTIFIED THE PT REQUEST BENADRYL IV FOR ITCHINESS. NOTIFIED THAT THE PT STILL WANTS TO SMOKE AND REFUSED TO DRAW TROPONIN LEVEL REFUSED BLOOD PRESSURE MEDICATION AND REQUESTED DOUBLE PORTION FOR RENAL DIET.ORDERED PAIN MANAGEMENT DR TO SEE THE PT. CALLED DR RAMIREZ BUT DR KINNEY RADIO RECORDER, WILL ENDORSE NEXT SHIFT RN TO FOLLOW UP.
[2019-07-17 20:00] VITALS: BP 187/123
--- NOTE | 2019-07-17 20:00 | NUR ---
FERN CUTTER NOTE PT IS NON COMPLIANT. A/O X 3, NO SOB NOTED. PT KEPT ON PACING IN HALLWAY, B/P IS HIGH. REMINDED PT TO STAY IN BED BUT KEPT ON REFUSING. ASKING FOR PAIN MED AND BENADRYL, PAGED DR KINNEY. CONTINUE TO MONITOR HIM.
--- NOTE | 2019-07-17 20:15 | NUR ---
LITHOGRAPHIC PLATE MAKER NOTE PT WALKED OUT OF THE UNIT WITH TELLING ANYONE. FOUND HIM SMOKING OUTSIDE. COMMERCIAL DRAFTER WENT OUTSIDE TO BRING HIM BACK.
--- NOTE | 2019-07-17 21:00 | NUR ---
STEWARD RACETRACK NOTE PT C/O ITCHING AND PAIN ALL OVER 06/08, BENADRYL 25 MG PO GIVEN FOR ITCHING AND NORCO 1 TAB PO FOR PAIN GIVEN. CONTINUE TO MONITOR. PT REFUSING TELE MONITORING. AND REMAIN NON COMPLIANT.
[2019-07-17] MEDS: CLONIDINE HCL 0.1 MG TABLET PO PRN (21:01)
--- NOTE | 2019-07-17 22:00 | NUR ---
REFINERY OPERATOR HELPER CRACKING UNIT NOTE ITCHING SUBSIDED AND ALSO PAIN SUBSIDED 2/10. NO FURTHER DISCOMFORT NOTED.
[2019-07-18] VITALS: BP 151/92
--- NOTE | 2019-07-18 | NUR ---
MUSHROOM SPAWN MAKER NOTE PT WOKE UP AND BECOME ANXIOUS ATIVAN 2 MG PO GIVEN. CONTINUE TO MONITOR HIM.
[2019-07-18] MEDS: LORAZEPAM 1 MG TABLET PO PRN ×4 (00:03→22:15)
--- NOTE | 2019-07-18 01:00 | NUR ---
ASSEMBLER METAL BUILDING NOTE PT FALL BACK TO SLEEP. ANXIETY SUBSIDED.
[2019-07-18 04:00] VITALS: BP 147/93
--- NOTE | 2019-07-18 07:30 | NUR ---
RN NOTES RECEIVED PATIENT IN BED, AWAKE BUT LETHARGIC, ABLE TO MAKE CONVERSATION AND MAKE NEEDS KNOWN. WITH OXYGEN VIA [employer] CANNULA AT 2LPM. TOLERATING WELL, NO S/S OF SOB NOTED AT THIS TIME. PATIENT COMPLAINS OF PAIN AND ANXIETY AT THIS TIME. WILL ADMINISTER DUE PRN MEDICATION. PATIENT SINUS RHYTHM ON THE MONITOR WITH HR ON THE 70s. IV LINE NOTED ON THE AURELIA: MIDLINE, IN PLACE AND PATENT, DRESSING CDI. SAFETY MEASURES OBSERVED AND MAINTAINED. ALL BELONGINGS MADE EASILY REACH. CALL LIGHT PLACED WITHIN REACH. WILL CONTINUE TO MONITOR PATIENT AND ANTICIPATE NEEDS
[2019-07-18 08:00] VITALS: BP 148/90
[2019-07-18] MEDS: LOSARTAN POTASSIUM 50 MG TABLET PO SCH (08:25)
[2019-07-18 08:26] LABS: CALCIUM, SERUM 8.3 mg/dL (8.5-10.1); CREATININE 6.6 mg/dL (0.6-1.3); MAGNESIUM 2.1 mg/dL (1.8-2.4); PHOSPHORUS 5.9 mg/dL (2.5-4.9); POTASSIUM 4.9 mmol/L (3.5-5.1)
[2019-07-18] MEDS: ESCITALOPRAM OXALATE (10 MG) 10 MG TABLET PO SCH (08:26)
[2019-07-18] MEDS: NIFEdipine (10MG) 10 MG CAPSULE PO SCH ×2 (08:26→17:09)
[2019-07-18] MEDS: GABAPENTIN 300 MG CAPSULE PO SCH (08:27)
[2019-07-18 08:42] LABS: BASOPHILS # (AUTO) 0.1 /CMM (0.0-0.2); BASOPHILS % (AUTO) 0.9 % (0.0-2.0); EOSINOPHILS % (AUTO) 6.4 % (0.0-6.0); HEMATOCRIT 25 % (39-51); LYMPHOCYTES # (AUTO) 1.1 /CMM (0.8-4.8); MEAN CORPUSCULAR HGB CONC 33 g/dl (31.0-36.0); MEAN CORPUSCULAR VOLUME 85 fL (80-96); NEUTROPHILS # (AUTO) 4.3 /CMM (1.8-8.9); NEUTROPHILS % (AUTO) 55.7 % (43.0-81.0); PLATELET COUNT (AUTO) 169 /CMM (150-450); RED BLOOD CELL COUNT(AUTO) 2.87 MIL/uL (4.5-6.0); WHITE BLOOD COUNT (AUTO) 7.6 K/uL (4.3-11.0)
[2019-07-18] MEDS ORDERED: MAGNESIUM OXIDE 400 MG TABLET PO SCH (09:00)
--- NOTE | 2019-07-18 11:00 | NUR ---
RN NOTES INFORMED DR. SAMUELS THAT PATIENT IS REQUESTING FOR A STRONGER PAIN MEDICATION, DILAUDID SPECIFICALLY BECAUSE NORCO ORAL TAB IS NOT WORKING FOR HIS PAIN. MD, NO NEW ORDERS IN LINE WITH THIS. Addendum: 07/18/19 at 1932 by JUAN FRANCICSO MALLORY RN ALSO INFORM MD ABOUT PATIENT'S NONCOMPLIANCE WITH SMOKING CESSATION DESPITE HEALTH TEACHING AND DISCUSSING RISKS
[2019-07-18 11:15] LABS: MONOCYTES # (AUTO) 1.7 /CMM (0.1-1.30)
[2019-07-18 11:21] LABS: EOSINOPHILS % (MANUAL) 9 % (0-4); LYMPHOCYTES % (MANUAL) 14 % (16-48); MONOCYTES % (MANUAL) 21 % (0-11.0); NEUTROPHILS % (MANUAL) 56 (42-76)
[2019-07-18] MEDS ORDERED: EPOETIN ALFA (10,000 UNIT) 10,000 UNIT/ML VIAL IV SCH (12:00)
[2019-07-18] MEDS: SEVELAMER CARBONATE 800 MG TABLET PO SCH ×2 (12:37→17:09)
--- NOTE | 2019-07-18 13:00 | NUR ---
RN NOTES PATIENT DIALYSIS TREATMENT INITIATED AT THIS TIME.
[2019-07-18] MEDS: diphenhydrAMINE HCL 50 MG/ML VIAL IV PRN ×2 (13:08→20:08)
[2019-07-18 16:00] VITALS: BP_SYST 121; BP_DIAS 52; BP_DIAS 62
--- NOTE | 2019-07-18 16:00 | NUR ---
RN NOTES DIALYSIS TREATMENT DONE. PATIENT ABLE TO TOLERATE THE PROCEDURE WELL. 2LITERS OUT
[2019-07-18] MEDS: HYDROCODONE/APAP 5/325MG 1 EACH TABLET PO PRN ×3 (16:21→22:15)
--- NOTE | 2019-07-18 19:28 | NUR ---
RN NOTES ENDORSED PATIENT FOR CONTINUITY OF CARE. NOT ON ANY FORM OF DISTRESS. ALL [id number] NEEDS ATTENDED AND MET. SAFETY MEASURES IN PLACE AT ALL TIMES. CALL LIGHT LATOYA REACH
--- NOTE | 2019-07-18 19:30 | NUR ---
MS RN NOTE PATIENT IN BED A/O X 1-2. PATIENT DROWSY, BUT ABLE TO EXPRESS NEEDS. PATIENT ASKING FOR PAIN MEDICATION AT THIS TIME. RN EXPLAINED TO PATIENT PAIN MEDS ARE IN LOCK OUT PERIOD, MEDS WILL BE DUE AT 1999. MINDLINE IN AURELIA PATENT AND INTACT NO S/S OF INFECTION/INFILTRATION. PATIENT DENIES SOB AT THIS TIME. NO S/S OF ACUTE DISTRESS. BED IN LOWEST LOCKED POSITION. RN WILL CONTINUE TO MONITOR FOR CHANGES.
[2019-07-18 20:00] VITALS: BP 101/65
--- NOTE | 2019-07-18 22:15 | NUR ---
MS RN NOTE WHILE OPENING THE ATIVAN TABLETS IN FRONT OF PATIENT, PATIENT EXPRESSED CONCERN THAT HE WAS RECEIVING A PLACEBO. RN SHOWED PATIENT CONTAINERS FOR ATIVAN TABLETS. PATIENT STATED, "WHY DID YOU HAVE TO GO OUT OF YOUR WAY TO SHOW ME THAT." RN EXPLAINED THAT THIS IS THE PROOF THAT WE ARE GIVING YOU THE REAL PILL. PATIENT EXPRESSED AGITATION AND ANNOYANCE. PATIENT PROCEEDED TO TAKE THE ATIVAN ACCUSING THE NURSE OF "TRYING TO KILL HIM." RN REORIENTED PATIENT TO HIS PLAN OF CARE AND GOALS FOR THE SHIFT.
[2019-07-19] VITALS: BP 111/66
--- NOTE | 2019-07-19 | NUR ---
MS RN NOTE PATIENT TAKEN OUT TO SMOKE WITH TWO CNA INSTRUCTOR'S IN A WHEELCHAIR. HOSPITAL POLICY WENT OVER WITH PATIENT EXPLAINING DESIGNATED SMOKING TIMES ENDS AT 1999. PATIENT VERBALIZES UNDERSTANDING THAT THIS WILL BE HIS LAST TIME SMOKING PAST DESIGNATED HOURS.
[2019-07-19 04:00] VITALS: BP 136/97
[2019-07-19] MEDS: diphenhydrAMINE HCL 50 MG/ML VIAL IV PRN ×3 (06:26→20:30)
[2019-07-19] MEDS: LORAZEPAM 1 MG TABLET PO PRN ×4 (06:26→23:19)
[2019-07-19] MEDS: HYDROCODONE/APAP 5/325MG 1 EACH TABLET PO PRN ×4 (06:26→20:30)
[2019-07-19 06:58] LABS: BASOPHILS # (AUTO) 0.1 /CMM (0.0-0.2); BASOPHILS % (AUTO) 1.3 % (0.0-2.0); EOSINOPHILS % (AUTO) 4.9 % (0.0-6.0); HEMATOCRIT 24 % (39-51); HEMOGLOBIN 7.9 g/dL (13.5-17.5); LYMPHOCYTES # (AUTO) 1.1 /CMM (0.8-4.8); LYMPHOCYTES % (AUTO) 16.9 % (20.0-44.0); MEAN CORPUSCULAR HGB CONC 33 g/dl (31.0-36.0); MEAN CORPUSCULAR VOLUME 86 fL (80-96); MONOCYTES # (AUTO) 1.6 /CMM (0.1-1.30); MONOCYTES % (AUTO) 24.4 % (2.0-12.0); NEUTROPHILS # (AUTO) 3.5 /CMM (1.8-8.9); NEUTROPHILS % (AUTO) 52.5 % (43.0-81.0); PLATELET COUNT (AUTO) 153 /CMM (150-450); WHITE BLOOD COUNT (AUTO) 6.7 K/uL (4.3-11.0)
[2019-07-19 07:05] LABS: CALCIUM, SERUM 8.1 mg/dL (8.5-10.1); POTASSIUM 4.3 mmol/L (3.5-5.1)
--- NOTE | 2019-07-19 07:30 | NUR ---
MS RN NOTE PATIENT TOLERATED THE NIGHT WELL, NO S/S OF ACUTE DISTRESS. ALL CARE RENDERED ORDERED. ENDORSED TO BART DELGADO POC FOR LISSETTE.
--- NOTE | 2019-07-19 07:46 | NUR ---
RN OPENING NOTES RECEIVED PATIENT SLEEPING IN BED, EASILY AROUSED BY VERBAL STIMULI. HE IS AOX4, ON 2 L OF O2, TOLERATING WELL, NO SOB OR RESP DISTRESS, FULL CODE, AMBULATORY, SKIN INTACT. HE IS ON A RENAL STANDARD DIET. HE HAS A AURELIA MIDLINE, LAV FISTULA, RCW HD CATHETER . SAFETY MEASURES HAVE BEEN IMPLEMENTED, CALL LIGHT WITHIN REACH, BED IN LOWEST AND LOCKED POSITION, SIDE RIALS UP X2, WILL CONTINUE TO MONITOR FOR ANY CHANGES.
[2019-07-19 08:00] VITALS: BP 148/104
[2019-07-19] MEDS: SEVELAMER CARBONATE 800 MG TABLET PO SCH ×3 (08:12→17:22)
[2019-07-19] MEDS: GABAPENTIN 300 MG CAPSULE PO SCH (09:00)
[2019-07-19] MEDS: NIFEdipine (10MG) 10 MG CAPSULE PO SCH ×2 (09:51→17:23)
[2019-07-19] MEDS: LOSARTAN POTASSIUM 50 MG TABLET PO SCH (09:54)
[2019-07-19] MEDS: ESCITALOPRAM OXALATE (10 MG) 10 MG TABLET PO SCH (09:54)
[2019-07-19 10:21] LABS: EOSINOPHILS % (MANUAL) 3 % (0-4); LYMPHOCYTES % (MANUAL) 12 % (16-48); MONOCYTES % (MANUAL) 22 % (0-11.0); NEUTROPHILS % (MANUAL) 63 (42-76)
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
[2019-07-19 14:00] VITALS: BP 129/80
[2019-07-19 16:00] VITALS: BP 129/80
--- NOTE | 2019-07-19 19:08 | NUR ---
RN CLOSING NOTE PATIENT IS RESTING IN BED COMFORTABLY. HE IS AOX4, VERBAL, AND AMBULATORY WITH AN UNSTEADY GAIT. PATIENT'S NEEDS WERE MET FOR THE DAY. HE WAS TAKEN OUTSIDE THREE TIMES TODAY TO SMOKE. THROUGHOUT THE DAY HE WAS ACTING HOSTILE TOWARDS THE HEALTH CARE TEAM. HE SHOWED INCREASED AGITATION AROUND 1700 BUT I WAS ABLE TO DEFUSE BEFORE HE ESCALATED. HE HAS A AURELIA MIDLINE AND AN LAV FISTULA AND R CHEST WALL HD CATH. HE IS ON A RENAL STANDARD DIET WITH SKIN INTACT. SAFETY MEASURES HAVE BEEN IMPLEMENTED, CALL LIGHT WITHIN REACH, BED IN LOWEST AND LOCKED POSITION, SIDE RAILS UP X2, WILL ENDORSE TO THE NIGHTSHIFT NURSE FOR CONTINUITY OF CARE.
--- NOTE | 2019-07-19 19:44 | NUR ---
MS RN NOTES RECEIVED PT ON BED, AGITATED, WANTING TO GET OUT OF HOSPITAL. ON NASAL CANNULA 2LPM NO RESPIRATORY DISTRESS NOTED. IV ACCESS ON AURELIA MIDLINE SL PATENT AND INTACT. HEAD OF BED ELEVATED.SIDE RAILS UP. CALL LIGHT WITHIN REACH. BED ALARM ON. WILL CONTINUE TO MONITOR PT CLOSELY.
[2019-07-19 20:00] VITALS: BP 108/74
[2019-07-19] MEDS: ALBUTEROL FS 2.5 MG/0.5 ML VIAL.NEB NEB PRN (22:39)
[2019-07-20] MEDS: diphenhydrAMINE HCL 50 MG/ML VIAL IV PRN ×2 (02:26→10:22)
[2019-07-20] MEDS: HYDROCODONE/APAP 5/325MG 1 EACH TABLET PO PRN ×3 (02:27→12:06)
--- NOTE | 2019-07-20 02:28 | NUR ---
MS RN NOTES PT AGITATED, RESTLESS. PT WANTS BENADRYL AND NORCO 5 TOGETHER.
[2019-07-20 04:00] VITALS: BP 175/110
--- NOTE | 2019-07-20 04:22 | NUR ---
MS RN NOTES PT REFUSING V/S TAKEN. EXPLAINED RISK AND BENEFITS. PT STRONGLY REFUSED X3.
[2019-07-20] MEDS: LORAZEPAM 1 MG TABLET PO PRN ×2 (06:03→13:35)
--- NOTE | 2019-07-20 06:33 | NUR ---
MS RN NOTES NO ACUTE CHANGES NOTED DURING THE SHIFT. PT AGITATED AND RESTLESS. PROVIDED COMFORT AND SAFETY. WILL ENDORSE TO THE AM NURSE FOR CONTINUITY OF CARE
[2019-07-20] MEDS: ALBUTEROL FS 2.5 MG/0.5 ML VIAL.NEB NEB PRN (07:21)
--- NOTE | 2019-07-20 07:46 | NUR ---
MS RN NOTES RECEIVED PT IN BED AWAKE, A/O X 4, NO SOB OR ACUTE DISTRESS NOTED. ON NASAL CANNULA 2LPM. AURELIA MIDLINE INTACT AND PATENT. HEAD OF BED ELEVATED. SIDE RAILS UP. SAFETY MEASURES IN PLACE, CALL LIGHT WITHIN REACH. BED ALARM ON. PATIENT REPORTED TO BE NON-COMPLIANT AND EXHIBITING AGGRESSIVE BEHAVIOR. WILL CONTINUE TO MONITOR.
[2019-07-20 08:00] VITALS: BP 171/97
[2019-07-20] MEDS: SEVELAMER CARBONATE 800 MG TABLET PO SCH ×2 (08:07→12:23)
[2019-07-20] MEDS: CLONIDINE HCL 0.1 MG TABLET PO PRN (08:08)
[2019-07-20] MEDS: GABAPENTIN 300 MG CAPSULE PO SCH (09:00)
[2019-07-20] MEDS: LOSARTAN POTASSIUM 50 MG TABLET PO SCH (10:09)
[2019-07-20] MEDS: ESCITALOPRAM OXALATE (10 MG) 10 MG TABLET PO SCH (10:20)
[2019-07-20] MEDS: NIFEdipine (10MG) 10 MG CAPSULE PO SCH ×2 (11:00→12:26)
[2019-07-20 12:26] VITALS: BP 177/102
--- NOTE | 2019-07-20 13:30 | NUR ---
MS RN NOTE 0900 PROCARDIA GIVEN AT 1226 DUE TO UNAVAILABILTY IN [place]MN[place]. PHARMACY NOTIFIED AND SENT MEDICATION AT 1220. PHARMACY ALSO HAD QUESTION ABOUT DOSING, MD BILLS ON-SITE AND VERIFIED MEDICATION OK TO GIVE.
--- NOTE | 2019-07-20 13:33 | NUR ---
MS RN NOTE PATIENT ATTEMPTING TO LEAVE UNIT TO HAVE CIGARETTE.
[2019-07-20] MEDS ORDERED: LORAZEPAM 1 MG TABLET PO ONE (14:30)
--- NOTE | 2019-07-20 16:00 | NUR ---
MS RN NOTE PATIENT VOMITED WHEN GIVEN ATIVAN. RN WITNESSED MEDICATION BEING EJECTED. PATIENT GIVEN ADDITIONAL DOSE.
--- NOTE | 2019-07-20 18:33 | NUR ---
MS FLAP MAKER NOTE PATIENT DISCHARGED PER MD VIA EMT GURNEY TRANSPORT. PATIENT A/0 X 4, NO SOB OR ACUTE DISTRESS NOTED. AURELIA MIDLINE REMOVED, NO METER ON PATIENT. ALL DISCHARGE PAPERWORK GIVEN TO EMT'S. PATIENT HAD NO C/O PAIN. DISCHARGE COMPLETED WITHOUT INCIDENT.
== END 2019-07-20 14:25 | disposition home or self-care (01) | DRG 194 ==
LOC: ER 09:55 → TELE1 13:01 → MEDSG1 07-18 10:40
PROVIDERS: ADMIT Family Medicine; ATTEND Student in an Organized Health Care Education/Training Program
PROC: 05H533Z Insertion of Infusion Device into Right Subclavian Vein, Percutaneous Approach (ICD-10-PCS; principal; 2019-07-17)
PROC: 5A1D70Z Performance of Urinary Filtration, Intermittent, Less than 6 Hours Per Day (ICD-10-PCS; 2019-07-18)
DX: I13.2 Hypertensive heart and chronic kidney disease with heart failure and with stage 5 chronic kidney disease, or end stage renal disease (principal); N18.6 End stage renal disease; I42.9 Cardiomyopathy, unspecified; F11.20 Opioid dependence, uncomplicated; Z99.2 Dependence on renal dialysis; Z86.711 Personal history of pulmonary embolism; Z86.718 Personal history of other venous thrombosis and embolism; I50.23 Acute on chronic systolic (congestive) heart failure; Z59.0 Homelessness; D63.8 Anemia in other chronic diseases classified elsewhere; F17.210 Nicotine dependence, cigarettes, uncomplicated; F32.9 Major depressive disorder, single episode, unspecified; F41.9 Anxiety disorder, unspecified; I25.10 Atherosclerotic heart disease of native coronary artery without angina pectoris; Z95.828 Presence of other vascular implants and grafts; Z88.2 Allergy status to sulfonamides; L93.0 Discoid lupus erythematosus; R07.89 Other chest pain
CPT/HCPCS: 36415; 71045-TC; 80048-TC; 80061-TC; 82728-TC; 83540-TC; 83735-TC; 84100-TC; 84484-TC; 85025-TC; 86706; 87040-TC; 87081-TC; 87340; 87806; G0378; J0885; J1170; J1200; J2060; Q0163